=== PATIENT | male | born 1955 | race Hispanic/Latino ===

== ENCOUNTER → 2017-07-14 | Day surgery (SDC) | payer MEDICARE ==
[2016-05-14 05:44] VITALS: PULSE 85
[2016-05-16 16:51] VITALS: BMI 56.7
[~2017-07-14] MED LIST: Sodium Chloride 0.45% 1,000 ML IV SCH
[2017-07-14 10:38] LABS: BASO # 0.09 K/mm3 (0.0-2.0); BASO % 1.1 % (0.0-3.0); EOS # 0.5 (0.0-0.7); GRAN # 4.55 (1.4-6.5); GRAN % 55.7 % (50.0-68.0); HEMOGLOBIN 13.3 g/dL (14.0-18.0); LYMPH # 2.3 (1.2-3.4); LYMPH % 28.2 % (22.0-35.0); MEAN CELL VOLUME 97.4 fl (80.0-105.0); MEAN CORPUSCULAR HEMOGLOBIN 31.7 pg (25.0-35.0); MEAN CORPUSCULAR HGB CONC 32.6 g/dl (31.0-37.0); MEAN PLATELET VOLUME 9.9 fl (7.0-11.0); MONO # 0.7 (0.1-0.6); RBC 4.19 10^6/uL (3.5-6.1); RED CELL DISTRIBUTION WIDTH 13.9 % (11.5-14.5); WHITE BLOOD COUNT 8.2 10^3/ul (4.5-11.0)
[2017-07-14 10:44] VITALS: RESP 18
[2017-07-14 10:46] LABS: INR 1.92 (0.93-1.08); PROTHROMBIN TIME 22.4 SECONDS (9.4-12.5)
[2017-07-14 10:54] LABS: BLOOD UREA NITROGEN 14 mg/dL (7-21); CALCIUM 8.9 mg/dL (8.4-10.5); GFR AFRICAN-AMERICAN > 60; GFR NON-AFRICAN AMERICAN > 60
[2017-07-14 12:47] LABS: BODY FLUID TYPE PERITONEAL/ASCITES
[2017-07-14 13:11] VITALS: TEMP 97.7; O2SAT 96
[2017-07-14 13:11] LABS: BF GROSS APPEARANCE BLOODY (CLEAR)
[2017-07-14 13:12] LABS: BODY FLUID TOTAL COUNT 100 (0-0)
[2017-07-14 13:17] VITALS: BP 149/72; PULSE 72
--- NOTE | 2017-07-14 13:26 | US ---
PROCEDURE: Ultrasound guided paracentesis. HISTORY: Alcoholic cirrhosis. Ascites with abdominal pain and distension. PHYSICIAN(S): Reji Dill MD. TECHNIQUE: The relative risks and indications for the procedure were explained to the patient and informed written consent obtained. Sonography of the abdomen was performed in a supine position. This revealed a small to moderate amount of non-loculated ascites, greatest in the right mid abdomen. A puncture site was selected and the area was prepped and draped in the usual sterile fashion. 1% Xylocaine was used to anesthetize the skin and soft tissues. A 7 Lebanese paracentesis catheter was trocared into the right mid abdomenand 2400 cc of bloody, non clotting blood aspirated. The appropriate labs were sent. The patient was advised about close clinical follow-up along with his . Dr. Teo steele was contact IMPRESSION: Ultrasound-guided paracentesis in the right mid abdomen. 2400 cc of bloody fluid were aspirated
== END | disposition home or self-care (01) ==
LOC: OPSURG 09:52
PROVIDERS: ATTEND Radiology Vascular & Interventional Radiology
DX: K70.31 Alcoholic cirrhosis of liver with ascites (principal)
CPT/HCPCS: 36415; 49083; 80048; 82042; 85025; 85610; 85730; 87070; 87075; 87101; 88108; 89051; J7030

== ENCOUNTER 2017-08-08 13:10 | Inpatient (IN) | payer MEDICARE, OTHER ==
[2017-08-08 14:05] VITALS: BMI 51.6
--- NOTE | 2017-08-08 14:42 | ED PDOC ---
Arrival/HPI - General Chief Complaint: Shortness Of Breath Time Seen by Provider: 08/08/17 14:14 Historian: Patient, Spouse - History of Present Illness Narrative History of Present Illness (Text): you were treated in the ED today for hx of CHF, Afib on coumadin, ascites/lymph edema with prior abdomen fluid taps for large volume of fluid, with difficulty breathing and abdomen fullness but otherwise without any nausea/vomiting/ headache/dizziness/chest pain/numbness/tingling/loss of limb function/pain with urination. 08/08/17 17:12 Time/Duration: 1 week Symptom Onset: Gradual Symptom Course: Unchanged Quality: Aching Severity Level: 2 Activities at Onset: Rest Context: Sitting Past Medical History - Provider Review Nursing Documentation Reviewed: Yes - Travel History Have you recently traveled outside [place] w/in the past 3 mons?: No - Infectious Disease Hx of Infectious Diseases: None - Tetanus Immunization Tetanus Immunization: Unknown - Cardiac Hx Atrial Fibrillation: Yes Hx Hypertension: Yes - Pulmonary Hx Respiratory Disorders: No - Neurological Hx Paralysis: No - HEENT Hx HEENT Disorder: (WEARS RX GLASSES) - Renal Hx Renal Disorder: No - Endocrine/Metabolic Hx Endocrine Disorders: No - Hematological/Oncological Hx Blood Transfusions: No Other/Comment: lymphedema - Integumentary Hx Dermatological Disorder: Yes (BILATERAL LE LYMPEDEMA + 4 EDEMA) - Musculoskeletal/Rheumatological Hx Arthritis: Yes Hx Rheumatoid Arthritis: Yes - Gastrointestinal Hx Gastrointestinal Disorders: Yes (reflux/hemorrhoids/ulcer) Other/Comment: ascites - Genitourinary/Gynecological Hx Reproductive Disorders: No - Psychiatric Hx Psychophysiologic Disorder: No Hx Emotional Abuse: No Hx Physical Abuse: No Hx Substance Use: Yes - Surgical History Hx Gastric Bypass Surgery: Yes (1999) Other/Comment: Cardiac ablation for atrial fibrillation - Anesthesia Hx Anesthesia Reactions: No Hx Malignant Hyperthermia: No - Suicidal Assessment Feels Threatened In Home Enviroment: No Family/Social History - Physician Review Nursing Documentation Reviewed: Yes Family/Social History: No Known Family HX Smoking Status: Never Smoked Hx Alcohol Use: Yes (DAILY WINE.BOTTLE OF WINE DAILY. LAST DRANK 09-22-15) Hx Substance Use: Yes Hx Substance Use Treatment: No Allergies/Home Meds Allergies/Adverse Reactions: Allergies No Known Allergies Allergy (Verified 08/08/17 14:04) Home Medications: Home Meds Medication Instructions Recorded Confirmed Metoprolol Tartrate 150 mg PO DAILY 07/14/17 08/08/17 traMADol [Ultram] 50 mg PO Q6H PRN 07/14/17 08/08/17 Review of Systems - Review of Systems Constitutional: Normal Eyes: Normal ENT: Normal Respiratory: SOB Cardiovascular: Normal Gastrointestinal: Abdominal Pain Genitourinary Male: Normal Musculoskeletal: Normal Skin: Normal Neurological: Normal Endocrine: Normal Hemo/Lymphatic: Normal Psychiatric: Normal Physical Exam Vital Signs Reviewed: Yes Vital Signs Temp Pulse Resp BP Pulse Ox 08/08/17 14:46 18 95 08/08/17 14:05 97.6 F 69 18 134/81 99 Temperature: Afebrile Blood Pressure: Hypertensive Pulse: Regular Respiratory Rate: Normal Appearance: Positive for: Well-Appearing, Non-Toxic, Comfortable Pain Distress: None Mental Status: Positive for: Alert and Oriented X 3 - Systems Exam Head: Present: Atraumatic, Normocephalic Pupils: Present: PERRL Extroacular Muscles: Present: EOMI Conjunctiva: Present: Normal Ears: Present: Normal Mouth: Present: Moist Mucous Membranes Pharnyx: Present: Normal Nose (External): Present: Atraumatic Nose (Internal): Present: Normal Inspection Neck: Present: Normal Range of Motion Respiratory/Chest: Present: Clear to Auscultation, Good Air Exchange Cardiovascular: Present: Regular Rate and Rhythm Abdomen: Present: Other (obesity). No: Tenderness, Distention, Normal Bowel Sounds, Peritoneal Signs, Rebound, Guarding, McBurney's Point Tender, Rovsing's Sign Present, Hernias, Feeding Tubes, Ostomy Tubes, Mass/Organomegaly, Scars Back: Present: Normal Inspection Upper Extremity: Present: Normal Inspection Lower Extremity: Present: Edema Neurological: Present: GCS=15, CN II-XII Intact, Speech Normal, Motor Func Grossly Intact Skin: Present: Warm, Normal Color Psychiatric: Present: Alert, Oriented x 3, Normal Insight, Normal Concentration Medical Decision Making ED Course and Treatment: you were treated in the ED today for hx of CHF, Afib on coumadin, ascites/lymph edema with prior abdomen fluid taps for large volume of fluid, with difficulty breathing and abdomen fullness but otherwise without any nausea/vomiting/ headache/dizziness/chest pain/numbness/tingling/loss of limb function/pain with urination. You were otherwise breathing easily, pink moist lips, smiling and talking with your , good strength/sensation, alert/oriented, walking easily , clear lungs, no abdomen tenderness, no fever temp 97.6, stable heart rate 69, stable breathing rate 18, excellent oxygen level 99% room air, elevated blood pressure 134/81 which we recommend repeat in 2-3 days primary care office to determine further treatment, you have blood tests no infection count 6, stable blood level hemoglobin 13/platelets 181, stable chemistry, Liver bilirubin mildly elevated 2.5, heart blood test negative less than 0.01, bnp 1110, urine test unclear sign of infection with trace leukocytes, INR 2.64, lipase normal 162, radiology chest xray with no active disease, ECG afib, observation done in the ED without improvement. ct a/p 07/27/17 with moderate ascites and anasarca with extensive subcutaneous edema. Report Date : 08/08/2017 15:16:38 Procedure: Chest xray Dictator : Hilario Dill MD IMPRESSION: No active disease. d/w hospitalist Dr. Land who stated can admit to telemetry for fluid overload/ ascites evaluation for possible paracentesis. 08/08/17 17:15 Reassessment Condition: Re-examined, Unchanged - Lab Interpretations Lab Results: 08/08/17 14:30 08/08/17 14:30 Lab Results 08/08/17 14:30: Sodium 137, Potassium 5.0, Chloride 100, Carbon Dioxide 27, Anion Gap 16, BUN 17, Creatinine 0.7 L, Est GFR ( Amer) > 60, Est GFR ( Non-Af Amer) > 60, Random Glucose 105, Calcium 9.2, Magnesium 1.9, Total Bilirubin 2.5 H, AST 30, ALT 28, Alkaline Phosphatase 92, Lactate Dehydrogenase 457, Total Creatine Kinase 80, Troponin I < 0.01, NT-Pro-B Natriuret Pep 1110 H , Total Protein 7.2, Albumin 4.2, Globulin 3.1, Albumin/Globulin Ratio 1.4, Lipase 162 08/08/17 14:30: PT 30.7 H, INR 2.64 H, APTT 38.4 H 08/08/17 14:30: WBC 6.5 D, RBC 4.12, Hgb 13.0 L, Hct 39.7 L, MCV 96.4, MCH 31.6 , MCHC 32.7, RDW 13.8, Plt Count 181, MPV 9.8, Gran % 57.2, Lymph % (Auto) 22.8 , [place] % (Auto) 13.0 H, Eos % (Auto) 5.5 H, Baso % (Auto) 1.5, Gran # 3.73, Lymph # (Auto) 1.5, [place] # (Auto) 0.9 H, Eos # (Auto) 0.4, Baso # (Auto) 0.10 08/08/17 14:20: Urine Color Yellow, Urine Appearance Clear, Urine pH 6.0, Ur Specific [place] 1.015, Urine Protein Negative, Urine Glucose (UA) Negative, Urine Ketones Negative, Urine Blood Trace-intact H, Urine Nitrate Negative, Urine Bilirubin Negative, Urine Urobilinogen 1.0 H, Ur Leukocyte Esterase Small H, Urine RBC 1 - 3, Urine WBC 2 - 5, Ur Epithelial Cells None, Urine Bacteria Few I have reviewed the lab results: Yes - RAD Interpretation Radiology Orders: 08/08/17 14:38 CHEST PORTABLE [RAD] Stat [employer] Instructor: Radiologist - EKG Interpretation Interpreted by ED Physician: Yes (afib) Type: 12 lead EKG Comparison: Similar to previous EKG (05/14/16) - Medication Orders Current Medication Orders: Discontinued Medications Morphine Sulfate (Morphine) 4 mg IVP STAT STA Stop: 08/08/17 15:59 Last Admin: 08/08/17 16:15 Dose: 4 mg MAR Pain Assessment Document 08/08/17 16:15 MS (Rec: 08/08/17 16:17 MS [id number]) Pain Reassessment Is this a pain reassessment? No Sleep Is patient sleeping during reassessment? No Presence of Pain Presence of Pain Yes Pain Scale Used Pain Scale Used Numeric Location Upper or Lower Upper Pain Location Body Site Abdomen Description Description Constant Intensity of Pain at present 9 Pain Behavior Moaning Guarding Grasping Site IVP Administration Document 08/08/17 16:15 MS (Rec: 08/08/17 16:17 MS [id number]) Charges for Administration # of IVP Administrations 1 Disposition/Present on Arrival - Present on Arrival Any Indicators Present on Arrival: No History of DVT/PE: No History of Uncontrolled Diabetes: No Urinary Catheter: No History of Decub. Ulcer: No History Surgical Site Infection Following: None - Disposition Have Diagnosis and Disposition been Completed?: Yes Diagnosis: Congestive heart failure (CHF), Ascites Disposition: HOSPITALIZED Disposition Time: 17:16 Patient Plan: Admission, Telemetry Condition: STABLE Discharge Instructions (ExitCare): Heart Failure (ED) Referrals: Rob Carter MD [Primary Care Provider] - Follow up with primary Forms: [facility] ([place])
[2017-08-08 14:57] LABS: BASO # 0.1 K/mm3 (0.0-2.0); BASO % 1.5 % (0.0-3.0); EOS # 0.4 (0.0-0.7); EOS % 5.5 % (1.5-5.0); GRAN # 3.73 (1.4-6.5); GRAN % 57.2 % (50.0-68.0); LYMPH # 1.5 (1.2-3.4); LYMPH % 22.8 % (22.0-35.0); MEAN CELL VOLUME 96.4 fl (80.0-105.0); MEAN CORPUSCULAR HEMOGLOBIN 31.6 pg (25.0-35.0); MEAN CORPUSCULAR HGB CONC 32.7 g/dl (31.0-37.0); MEAN PLATELET VOLUME 9.8 fl (7.0-11.0); MONO # 0.9 (0.1-0.6); RBC 4.12 10^6/uL (3.5-6.1); RED CELL DISTRIBUTION WIDTH 13.8 % (11.5-14.5); WHITE BLOOD COUNT 6.5 10^3/ul (4.5-11.0)
[2017-08-08 15:00] LABS: ALB/GLOB RATIO 1.4 (1.1-1.8); ALBUMIN 4.2 g/dL (3.0-4.8); ALT/SGPT 28 U/L (7-56); AST/SGOT 30 U/L (17-59); BLOOD UREA NITROGEN 17 mg/dL (7-21); CALCIUM 9.2 mg/dL (8.4-10.5); GFR AFRICAN-AMERICAN > 60; GFR NON-AFRICAN AMERICAN > 60; LIPASE 162 U/L (23-300)
[2017-08-08 15:09] LABS: B-TYPE NATRIURETIC PEPTIDE 1110 pg/mL (0-450); TROPONIN I < 0.01 ng/mL
[2017-08-08 15:13] LABS: INR 2.64 (0.93-1.08); PARTIAL THROMBOPLASTIN TIME 38.4 Seconds (25.1-36.5); PROTHROMBIN TIME 30.7 SECONDS (9.4-12.5)
--- NOTE | 2017-08-08 15:17 | RAD ---
HISTORY: 62yoM, with sob COMPARISON: 05/14/2016 FINDINGS: LUNGS: No active pulmonary disease. PLEURA: No significant pleural effusion identified, no pneumothorax apparent. CARDIOVASCULAR: Mild cardiomegaly OSSEOUS STRUCTURES: No significant abnormalities. VISUALIZED UPPER ABDOMEN: Normal. OTHER FINDINGS: None. IMPRESSION: No active disease.
[2017-08-08] MEDS ORDERED: Morphine 4 mg/ml ISec IVP STA (15:58)
[2017-08-08 16:20] LABS: URINE BILIRUBIN NEGATIVE (NEGATIVE); URINE BLOOD TRACE-INTACT (NEGATIVE); URINE GLUCOSE (UA) NEGATIVE (NEGATIVE); URINE LEUKOCYTE ESTERASE SMALL Leu/uL (NEGATIVE); URINE PROTEIN NEGATIVE mg/dL (<30 mg/dL)
[2017-08-08 16:21] LABS: URINE APPEARANCE CLEAR (CLEAR); URINE COLOR YELLOW (YELLOW)
[2017-08-08 16:27] LABS: URINE BACTERIA FEW (NEG)
--- NOTE | 2017-08-08 17:12 | CP.PCM.HP ---
<Dio Modi - Last Filed: 08/08/17 18:18> History of Present Illness - History of Present Illness History of Present Illness: 62 year old male with past medical history of ascites, CHF, atrial fibrillation , morbid obesity, lymphadema, GERD, Pulmonary HTN presents with shortness of breath. Patient states shortness of breath began yesterday. When he tries to ambulate a small distance he feels like he cant breath and he has also noted his belly has been getting mackenzie and larger. Patient states that he has gained about 50 lbs over the past 6 months and that his abdomen has been tapped twice, last in June for which 2.5 L was removed. He saw his park naturalist, Dr. Ziegler last week for which he was given a prescription for a water pill but he has yest to have it filled. Patient denies any chest pain, fever, cough, chills, sick contacts or any other complaints at this time. Cardio: Dr. Ziegler PMD: Dr. Brown PMH: CHF (distolic dysfunction), atrial fibrillation, morbid obesity, lymphadema , GERD, Pulmonary HTN Med: Coumadin 2.5 mg PO daily, Metoprolol 100 mg PO daily, Digoxin 0.25 PO daily , Tramadol 50 mg PO TID PRN, folic acid Allergy: NKDA PSH: IVC filter placement (2010), Cardiac Ablation (1999), Gastric bypass (1999) Hosp: recent hospitalization in April for similar symptoms and paracentesis by Dr. Dill in June FH: Mother - CVA, DM; Father - CVA, HTN Social: bottle of wine over 3-4 days, smoked a pack a day, denies illicit drug use Present on Admission - Present on Admission Any Indicators Present on Admission: No Review of Systems - Constitutional Constitutional: absent: Chills, Fever, Night Sweats - EENT Eyes: absent: Blurred Vision, Change in Vision - Cardiovascular Cardiovascular: Dyspnea, Orthopnea. absent: Chest Pain, Palpitations - Respiratory Respiratory: Dyspnea. absent: Cough, Wheezing, Snoring - Gastrointestinal Gastrointestinal: Abdominal Pain. absent: Coffee Ground Emesis, Melena, Nausea , Vomiting - Genitourinary Genitourinary: absent: Change in Urinary Stream, Difficulty Urinating - Musculoskeletal Musculoskeletal: absent: Numbness, Tingling - Neurological Neurological: absent: Dizziness, Tingling Past Patient History - Infectious Disease Hx of Infectious Diseases: None - Tetanus Immunizations Tetanus Immunization: Unknown - Past Social History Smoking Status: Never Smoked - CARDIAC Hx Atrial Fibrillation: Yes Hx Hypertension: Yes - PULMONARY Hx Respiratory Disorders: No - NEUROLOGICAL Hx Paralysis: No - HEENT Hx HEENT Problems: (WEARS RX GLASSES) - RENAL Hx Chronic Kidney Disease: No - ENDOCRINE/METABOLIC Hx Endocrine Disorders: No - HEMATOLOGICAL/ONCOLOGICAL Hx Blood Transfusions: No Other/Comment: lymphedema - INTEGUMENTARY Hx Dermatological Problems: Yes (BILATERAL LE LYMPEDEMA + 4 EDEMA) - MUSCULOSKELETAL/RHEUMATOLOGICAL Hx Arthritis: Yes Hx Rheumatoid Arthritis: Yes - GASTROINTESTINAL Hx Gastrointestinal Disorders: Yes (reflux/hemorrhoids/ulcer) Other/Comment: ascites - GENITOURINARY/GYNECOLOGICAL Hx Reproductive Disorders: No - PSYCHIATRIC Hx Psychophysiologic Disorder: No Hx Emotional Abuse: No Hx Physical Abuse: No Hx Substance Use: Yes - SURGICAL HISTORY Hx Gastric Bypass Surgery: Yes (1999) Other/Comment: Cardiac ablation for atrial fibrillation - ANESTHESIA Hx Anesthesia Reactions: No Hx Malignant Hyperthermia: No Meds Allergies/Adverse Reactions: Allergies Allergy/AdvReac Type Severity Reaction Status Date / Time No Known Allergies Allergy Verified 08/08/17 14:04 Physical Exam - Constitutional Appears: Non-toxic, No Acute Distress - Head Exam Head Exam: ATRAUMATIC, NORMAL INSPECTION, NORMOCEPHALIC - Eye Exam Eye Exam: EOMI, Normal appearance - ENT Exam ENT Exam: Mucous Membranes Moist - Respiratory Exam Respiratory Exam: Rales, NORMAL BREATHING PATTERN - GI/Abdominal Exam GI & Abdominal Exam: Distended, Tenderness Results - Vital Signs Recent Vital Signs: Last Vital Signs Temp 97.6 F 08/08/17 14:05 Pulse 69 08/08/17 14:05 Resp 18 08/08/17 14:46 BP 134/81 08/08/17 14:05 Pulse Ox 95 08/08/17 14:46 - Labs Result Diagrams: 08/08/17 14:30 08/08/17 14:30 Labs: Laboratory Results - last 24 hr 08/08/17 08/08/17 08/08/17 14:20 14:30 14:30 WBC 6.5 D RBC 4.12 Hgb 13.0 L Hct 39.7 L MCV 96.4 MCH 31.6 MCHC 32.7 RDW 13.8 Plt Count 181 MPV 9.8 Gran % 57.2 Lymph % (Auto) 22.8 [place] % (Auto) 13.0 H Eos % (Auto) 5.5 H Baso % (Auto) 1.5 Gran # 3.73 Lymph # (Auto) 1.5 [place] # (Auto) 0.9 H Eos # (Auto) 0.4 Baso # (Auto) 0.10 PT 30.7 H INR 2.64 H APTT 38.4 H Sodium Potassium Chloride Carbon Dioxide Anion Gap BUN Creatinine Est GFR ( Amer) Est GFR (Non-Af Amer) Random Glucose Calcium Magnesium Total Bilirubin AST ALT Alkaline Phosphatase Lactate Dehydrogenase Total Creatine Kinase Troponin I NT-Pro-B Natriuret Pep Total Protein Albumin Globulin Albumin/Globulin Ratio Lipase Urine Color Yellow Urine Appearance Clear Urine pH 6.0 Ur Specific [place] 1.015 Urine Protein Negative Urine Glucose (UA) Negative Urine Ketones Negative Urine Blood Trace-intact H Urine Nitrate Negative Urine Bilirubin Negative Urine Urobilinogen 1.0 H Ur Leukocyte Esterase Small H Urine RBC 1 - 3 Urine WBC 2 - 5 Ur Epithelial Cells None Urine Bacteria Few 08/08/17 14:30 WBC RBC Hgb Hct MCV MCH MCHC RDW Plt Count MPV Gran % Lymph % (Auto) [place] % (Auto) Eos % (Auto) Baso % (Auto) Gran # Lymph # (Auto) [place] # (Auto) Eos # (Auto) Baso # (Auto) PT INR APTT Sodium 137 Potassium 5.0 Chloride 100 Carbon Dioxide 27 Anion Gap 16 BUN 17 Creatinine 0.7 L Est GFR ( Amer) > 60 Est GFR (Non-Af Amer) > 60 Random Glucose 105 Calcium 9.2 Magnesium 1.9 Total Bilirubin 2.5 H AST 30 ALT 28 Alkaline Phosphatase 92 Lactate Dehydrogenase 457 Total Creatine Kinase 80 Troponin I < 0.01 NT-Pro-B Natriuret Pep 1110 H Total Protein 7.2 Albumin 4.2 Globulin 3.1 Albumin/Globulin Ratio 1.4 Lipase 162 Urine Color Urine Appearance Urine pH Ur Specific [place] Urine Protein Urine Glucose (UA) Urine Ketones Urine Blood Urine Nitrate Urine Bilirubin Urine Urobilinogen Ur Leukocyte Esterase Urine RBC Urine WBC Ur Epithelial Cells Urine Bacteria Assessment & Plan - Assessment and Plan (Free Text) Assessment: 62 year old male with past medical history of ascites, CHF, atrial fibrillation , morbid obesity, lymphadema, GERD, Pulmonary HTN presents with shortness of breath for the past day, along with increased abdominal distension. Plan: Shortness of Breath Likely secondary to CHF exacerbation -chest xray showing vascular congestion -EKG showing Afib -Strict I's & O's -Lasix 40 mg IVP BID -1500ml fluid restriction daily -Digoxin 0.25 mg PO daily -Digoxin level pending -BNP: 1110 -Metoprolol 100 mg PO daily -Cardiology consult, Dr. Stearns, follow recs Ascites-likely secondary to heart failure -IR consulted, Reji Dill, follow recs -possible paracentesis -Lasix IVP 40 BID -hold coumadin -repeat INR and coags in AM Atrial fibrillation-chronic -Holding Coumadin 2.5 mg -Digoxin 0.25 mg PO daily -Metoprolol 100 mg PO daily -Cardiology consult, Dr. Ziegler, follow recs HTN-chronic -Metoprolol 100 mg PO daily Morbid Obesity -semi truck driver consult -diet counseling GERD -protonix Prophylaxis DVT ppx: currently on hold for elevated INR GI ppx: Protonix 40 mg PO daily <Rodriguez Land - Last Filed: 08/09/17 16:40> Results - Vital Signs Recent Vital Signs: Last Vital Signs Temp 98.1 F 08/09/17 12:00 Pulse 64 08/09/17 14:00 Resp 20 08/09/17 12:00 BP 123/67 08/09/17 12:00 Pulse Ox 93 L 08/09/17 05:55 - Labs Result Diagrams: 08/09/17 06:00 08/09/17 06:00 Labs: Laboratory Results - last 24 hr 08/09/17 12:10 Urine Color Yellow Urine Appearance Clear Urine pH 5.5 Ur Specific [place] <= 1.005 Urine Protein Negative Urine Glucose (UA) Negative Urine Ketones Negative Urine Blood Negative Urine Nitrate Negative Urine Bilirubin Negative Urine Urobilinogen 0.2 Ur Leukocyte Esterase Small H Urine RBC 0 - 2 Urine WBC 5 - 10 Ur Epithelial Cells None Urine Bacteria Few Attending/Attestation - Attestation I have personally seen and examined this patient.: Yes I have fully participated in the care of the patient.: Yes I have reviewed all pertinent clinical information: Yes Notes (Text): 08/09/17 16:36 Medical record note made by the resident after discussion with my direction and input after the patient was personally seen and examined by me. I have reviewed the chart and agree that the record accurately reflects by personal performance of the history, physical exam, data review, and medical decision-making, in the course for the patient. I have also personally directed the plan of care 62 year old male with past medical history of Morbid Obesity,HTN, diastolic CHF , atrial fibrillation on anticoagulation with warfarin, , lymphadema, GERD, and Pulmonary HTN is admitted with dyspnea on exertion and worsening abdominal swelling.Patient dyspnea is due to fluid overload, will start patient on IV lasix, will get 2D Echo, we will hold warfarin and will get IR evaluation for Paracentesis.We will also get cardiology evaluation. Management plan was discussed in detail with patient. Education was provided.
--- NOTE | 2017-08-08 20:35 | CARD ---
APPROVED REPORT EKG Measurement Heart [id number] <Conclusion> Atrial fibrillation Abnormal ECG
[2017-08-09] MEDS: Pantoprazole 40 mg EC Tab PO SCH (05:17)
[2017-08-09 07:33] LABS: BASO # 0.04 K/mm3 (0.0-2.0); BASO % 0.7 % (0.0-3.0); EOS # 0.3 (0.0-0.7); EOS % 5.4 % (1.5-5.0); GRAN # 2.93 (1.4-6.5); GRAN % 54.4 % (50.0-68.0); HEMOGLOBIN 11.6 g/dL (14.0-18.0); LYMPH # 1.4 (1.2-3.4); LYMPH % 25.4 % (22.0-35.0); MEAN CELL VOLUME 95.7 fl (80.0-105.0); MEAN CORPUSCULAR HEMOGLOBIN 30.9 pg (25.0-35.0); MEAN CORPUSCULAR HGB CONC 32.2 g/dl (31.0-37.0); MEAN PLATELET VOLUME 10.1 fl (7.0-11.0); MONO # 0.8 (0.1-0.6); MONO % 14.1 % (1.0-6.0); RBC 3.76 10^6/uL (3.5-6.1); RED CELL DISTRIBUTION WIDTH 13.8 % (11.5-14.5); WHITE BLOOD COUNT 5.4 10^3/ul (4.5-11.0)
[2017-08-09 07:47] LABS: ALB/GLOB RATIO 1.4 (1.1-1.8); ALBUMIN 3.9 g/dL (3.0-4.8); ALT/SGPT 24 U/L (7-56); AST/SGOT 50 U/L (17-59); BLOOD UREA NITROGEN 16 mg/dL (7-21); CALCIUM 9.2 mg/dL (8.4-10.5); GFR AFRICAN-AMERICAN > 60; GFR NON-AFRICAN AMERICAN > 60
[2017-08-09 08:29] LABS: INR 3.01 (0.93-1.08); PROTHROMBIN TIME 35.4 SECONDS (9.4-12.5)
--- NOTE | 2017-08-09 09:06 | CP.PCM.PN ---
<Nadiya Ansari - Last Filed: 08/09/17 09:14> Subjective - Date & Time of Evaluation Date of Evaluation: 08/09/17 Time of Evaluation: 09:03 - Subjective Subjective: Hospitalist Service Patient seen and examined at [facility]. Patient reports orthopnea. Patient denies chest pain. Patient ask what time his paracentesis will be. Chart review indicates no adverse events overnight. Objective - Vital Signs/Intake and Output Vital Signs (last 24 hours): Temp Pulse Resp BP Pulse Ox 97.5 F L 77 20 136/78 93 L 08/09/17 05:55 08/09/17 08:28 08/09/17 05:55 08/09/17 08:28 08/09/17 05:55 Intake and Output: 08/09/17 08/09/17 06:59 18:59 Intake Total 240 Output Total 2450 Balance -2210 - Medications Medications: Current Medications Digoxin (Lanoxin) 0.25 mg PO 1400 ERNESTINA Furosemide (Lasix) 40 mg IVP Q12 [facility] Last Admin: 08/08/17 21:58 Dose: Not Given Metoprolol Tartrate (Lopressor) 100 mg PO BRK [facility] Last Admin: 08/09/17 08:41 Dose: Not Given Pantoprazole Sodium (Protonix Ec Tab) 40 mg PO 0600 [facility] Last Admin: 08/09/17 05:17 Dose: 40 mg Tramadol HCl (Ultram) 50 mg PO Q6H PRN PRN Reason: Pain, moderate (4-7) - Labs Labs: 08/09/17 06:00 08/09/17 06:00 PT 35.4 SECONDS (9.4-12.5) H 08/09/17 06:30 INR 3.01 (0.93-1.08) H 08/09/17 06:30 APTT 38.4 Seconds (25.1-36.5) H 08/08/17 14:30 - Constitutional Appears: Well, Non-toxic - Head Exam Head Exam: ATRAUMATIC - Eye Exam Eye Exam: EOMI, Normal appearance - Respiratory Exam Respiratory Exam: Rales, NORMAL BREATHING PATTERN - Cardiovascular Exam Cardiovascular Exam: +S1, +S2 - GI/Abdominal Exam GI & Abdominal Exam: Distended. absent: Guarding - Extremities Exam Extremities Exam: Pedal Edema - Neurological Exam Neurological Exam: Alert, Awake, Oriented x3 - Psychiatric Exam Psychiatric exam: Normal Affect, Normal Mood Assessment and Plan - Assessment and Plan (Free Text) Assessment: 62 year old male with past medical history of ascites, CHF, atrial fibrillation , morbid obesity, lymphadema, GERD, Pulmonary HTN presents with shortness of breath for the past day, along with increased abdominal distension. Plan: Shortness of Breath Likely secondary to CHF exacerbation -chest xray showing vascular congestion -EKG showing Afib -Strict I's & O's -Lasix 40 mg IVP BID -1500ml fluid restriction daily -Digoxin 0.25 mg PO daily -Digoxin level wnl -BNP: 1110 -Metoprolol 100 mg PO daily -Cardiology consult, Dr. Stearns, follow recs Ascites-likely secondary to heart failure -IR consulted, Reji Dill, follow recs -possible paracentesis -Lasix IVP 40 BID -hold coumadin -repeat INR is 3.01 Atrial fibrillation-chronic -Holding Coumadin 2.5 mg -Digoxin 0.25 mg PO daily -Metoprolol 100 mg PO daily -Cardiology consult, Dr. Ziegler, follow recs HTN-chronic -Metoprolol 100 mg PO daily Morbid Obesity -delivery room supervisor consult -diet counseling GERD -protonix Prophylaxis DVT ppx: currently on hold for elevated INR GI ppx: Protonix 40 mg PO daily Case reviewed and discussed with Dr. Land <Rodriguez Land - Last Filed: 08/09/17 16:41> Objective - Vital Signs/Intake and Output Vital Signs (last 24 hours): Temp Pulse Resp BP Pulse Ox 98.1 F 64 20 123/67 93 L 08/09/17 12:00 08/09/17 14:00 08/09/17 12:00 08/09/17 12:00 08/09/17 05:55 Intake and Output: 08/09/17 08/09/17 06:59 18:59 Intake Total 660 Output Total 600 Balance 60 - Medications Medications: Current Medications Digoxin (Lanoxin) 0.25 mg PO 1400 [facility] Last Admin: 08/09/17 13:20 Dose: Not Given Furosemide (Lasix) 40 mg IVP Q12 [facility] Last Admin: 08/09/17 09:11 Dose: 40 mg Ceftriaxone Sodium (Rocephin 1 Gram Ivpb) 1 gm in 100 mls @ 100 mls/hr IVPB DAILY ERNESTINA PRN Reason: Protocol Stop: 08/12/17 15:01 Last Admin: 08/09/17 15:54 Dose: 100 mls/hr Metoprolol Tartrate (Lopressor) 100 mg PO BRK [facility] Last Admin: 08/09/17 08:41 Dose: Not Given Pantoprazole Sodium (Protonix Ec Tab) 40 mg PO 0600 [facility] Last Admin: 08/09/17 05:17 Dose: 40 mg Spironolactone (Aldactone) 25 mg PO BID [facility] Last Admin: 08/09/17 12:05 Dose: 25 mg Tramadol HCl (Ultram) 50 mg PO Q6H PRN PRN Reason: Pain, moderate (4-7) Last Admin: 08/09/17 09:12 Dose: 50 mg Zolpidem Tartrate (Ambien) 10 mg PO HS PRN; Protocol PRN Reason: Insomnia - Labs Labs: PT 35.4 SECONDS (9.4-12.5) H 08/09/17 06:30 INR 3.01 (0.93-1.08) H 08/09/17 06:30 APTT 38.4 Seconds (25.1-36.5) H 08/08/17 14:30 Attending/Attestation - Attestation I have personally seen and examined this patient.: Yes I have fully participated in the care of the patient.: Yes I have reviewed all pertinent clinical information, including history, physical exam and plan: Yes Notes (Text): 08/09/17 16:41 Medical record note made by the resident after discussion with my direction and input after the patient was personally seen and examined by me. I have reviewed the chart and agree that the record accurately reflects by personal performance of the history, physical exam, data review, and medical decision-making, in the course for the patient. I have also personally directed the plan of care
[2017-08-09 13:08] LABS: PH,URINE 5.5 (4.7-8.0); URINE BILIRUBIN NEGATIVE (NEGATIVE); URINE BLOOD NEGATIVE (NEGATIVE); URINE GLUCOSE (UA) NEGATIVE (NEGATIVE); URINE LEUKOCYTE ESTERASE SMALL Leu/uL (NEGATIVE); URINE PROTEIN NEGATIVE mg/dL (<30 mg/dL); URINE UROBILINOGEN 0.2 E.U./dL (<1 E.U./dL)
[2017-08-09 13:14] LABS: URINE APPEARANCE CLEAR (CLEAR); URINE COLOR YELLOW (YELLOW)
[2017-08-09 13:20] LABS: URINE BACTERIA FEW (NEG); URINE RBC 0 - 2 /hpf (0-2)
[2017-08-09] MEDS: Digoxin 250 mcg (0.25 mg) Tab PO SCH (13:20)
[2017-08-09 13:21] VITALS: PULSE 57
--- NOTE | 2017-08-09 15:36 | CON ---
DATE: 08/09/2017 REQUESTING PHYSICIAN: Dr. Baeza. REASON FOR CONSULTATION: Dyspnea. HISTORY: This is a 62-year-old man well known to me with a history of chronic atrial fibrillation, morbid obesity, chronic lymphedema and alcoholic liver disease, who was admitted with worsening dyspnea. He has undergone paracentesis in the past for significant ascites, also over the past several months he has had significant weight gain of over 50 pounds. He was recently seen as an outpatient and advised follow up with Dr. Reji Dill for possible paracentesis. He was also given a prescription for spironolactone which he did not fill or obtain. He presented and was admitted. He denies any chest pain. PAST MEDICAL HISTORY: Notable for the problems mentioned above. He has chronic lymphedema, gastroesophageal reflux disease, morbid obesity and pulmonary hypertension. He has had prior cardiac ablation performed as well as a gastric bypass surgery and IVC filter placement. MEDICATIONS: At home include warfarin, metoprolol 100 mg daily, digoxin 0.25 mg daily, tramadol and folic acid. ALLERGIES: NONE. SOCIAL HISTORY: He drinks intermittently, but states he has cut back on it significantly. He is also a former smoker. FAMILY HISTORY: His father from cerebrovascular accident. Mother from complications of diabetes and stroke as well. REVIEW OF SYSTEMS: A 10-point review of systems is notable mainly for the problems as above. PHYSICAL EXAMINATION: GENERAL: He is an obese, middle-aged man. VITAL SIGNS: His blood pressure is 136/78 with the pulse of 76, in atrial fibrillation, respirations 14. He is afebrile. HEENT: Normocephalic, atraumatic. NECK: Supple. No JVD noted. CHEST: Diminished breath sounds noted at bases. HEART: PMI displaced laterally with an irregularly irregular rhythm and soft systolic murmur present at the lower left sternal border. ABDOMEN: Soft, markedly obese. There is unclear if ascites is present. Bowel sounds are present. EXTREMITIES: Marked lymphedema in both lower extremities. SKIN: Significant bilateral lower extremity cellulitic changes at present. DIAGNOSTIC DATA: White count is 5.4, hemoglobin and hematocrit 11.6 and 36 with platelet count of 172,000. INR 3.01, potassium 4.4, BUN and creatinine 16 and 0.7. BNP is 1110. Troponin is negative. Albumin is 3.9. Digoxin level is 1. IMPRESSION: 1. Increasing dyspnea likely due to volume overload and chronic liver disease. 2. Possible ascites, needs evaluation and possible paracentesis. 3. Chronic atrial fibrillation, controlled rate. 4. History of alcohol abuse. 5. Rest of problems as noted. RECOMMENDATIONS: Oral spironolactone will be added to his regimen at this time. IV Lasix should be continued for now. Abdomen ultrasound is advised. If significant fluid accumulation is present, paracentesis should be considered. The need for alcohol abstinence was discussed with him. We will continue to follow and make further recommendation as appropriate. Osvaldo Myrick MD
[2017-08-09] MEDS: cefTRIAXone 1 gm 1 GM/100 ML BAG IVPB SCH (15:54)
--- NOTE | 2017-08-09 17:15 | CP.PCM.PCO ---
Physician Communication Note - Physician Communication Note Physician Communication Note: Nurse called and asked to cancel order for abd us given patient taken for Hospital Course - Lab Results Lab Results: Most Recent Lab Values WBC 5.4 10^3/ul (4.5-11.0) 08/09/17 06:00 RBC 3.76 10^6/uL (3.5-6.1) 08/09/17 06:00 Hgb 11.6 g/dL (14.0-18.0) L 08/09/17 06:00 Hct 36.0 % (42.0-52.0) L 08/09/17 06:00 MCV 95.7 fl (80.0-105.0) 08/09/17 06:00 MCH 30.9 pg (25.0-35.0) 08/09/17 06:00 MCHC 32.2 g/dl (31.0-37.0) 08/09/17 06:00 RDW 13.8 % (11.5-14.5) 08/09/17 06:00 Plt Count 172 10^3/uL (120.0-450.0) 08/09/17 06:00 MPV 10.1 fl (7.0-11.0) 08/09/17 06:00 Gran % 54.4 % (50.0-68.0) 08/09/17 06:00 Lymph % (Auto) 25.4 % (22.0-35.0) 08/09/17 06:00 [place] % (Auto) 14.1 % (1.0-6.0) H 08/09/17 06:00 Eos % (Auto) 5.4 % (1.5-5.0) H 08/09/17 06:00 Baso % (Auto) 0.7 % (0.0-3.0) 08/09/17 06:00 Gran # 2.93 (1.4-6.5) 08/09/17 06:00 Lymph # (Auto) 1.4 (1.2-3.4) 08/09/17 06:00 [place] # (Auto) 0.8 (0.1-0.6) H 08/09/17 06:00 Eos # (Auto) 0.3 (0.0-0.7) 08/09/17 06:00 Baso # (Auto) 0.04 K/mm3 (0.0-2.0) 08/09/17 06:00 PT 35.4 SECONDS (9.4-12.5) H 08/09/17 06:30 INR 3.01 (0.93-1.08) H 08/09/17 06:30 APTT 38.4 Seconds (25.1-36.5) H 08/08/17 14:30 Sodium 139 mmol/L (132-148) 08/09/17 06:00 Potassium 4.4 mmol/L (3.6-5.0) 08/09/17 06:00 Chloride 101 mmol/L (98-107) 08/09/17 06:00 Carbon Dioxide 25 mmol/L (21-33) 08/09/17 06:00 Anion Gap 17 (10-20) 08/09/17 06:00 BUN 16 mg/dL (7-21) 08/09/17 06:00 Creatinine 0.7 mg/dl (0.8-1.5) L 08/09/17 06:00 Est GFR ( Amer) > 60 08/09/17 06:00 Est GFR (Non-Af Amer) > 60 08/09/17 06:00 Random Glucose 89 mg/dL (70-110) 08/09/17 06:00 Calcium 9.2 mg/dL (8.4-10.5) 08/09/17 06:00 Magnesium 1.9 mg/dL (1.7-2.2) 08/08/17 14:30 Total Bilirubin 2.8 mg/dL (0.2-1.3) H 08/09/17 06:00 AST 50 U/L (17-59) 08/09/17 06:00 ALT 24 U/L (7-56) 08/09/17 06:00 Alkaline Phosphatase 81 U/L (38-126) 08/09/17 06:00 Lactate Dehydrogenase 457 U/L (333-699) 08/08/17 14:30 Total Creatine Kinase 80 U/L (35-230) 08/08/17 14:30 Troponin I < 0.01 ng/mL 08/08/17 14:30 NT-Pro-B Natriuret Pep 1110 pg/mL (0-450) H 08/08/17 14:30 Total Protein 6.7 g/dL (5.8-8.3) 08/09/17 06:00 Albumin 3.9 g/dL (3.0-4.8) 08/09/17 06:00 Globulin 2.9 gm/dL 08/09/17 06:00 Albumin/Globulin Ratio 1.4 (1.1-1.8) 08/09/17 06:00 Lipase 162 U/L (23-300) 08/08/17 14:30 Urine Color Yellow (YELLOW) 08/09/17 12:10 Urine Appearance Clear (CLEAR) 08/09/17 12:10 Urine pH 5.5 (4.7-8.0) 08/09/17 12:10 Ur Specific Turrell <= 1.005 (1.005-1.035) 08/09/17 12:10 Urine Protein Negative mg/dL (<30 mg/dL) 08/09/17 12:10 Urine Glucose (UA) Negative mg/dL (NEGATIVE) 08/09/17 12:10 Urine Ketones Negative mg/dL (NEGATIVE) 08/09/17 12:10 Urine Blood Negative (NEGATIVE) 08/09/17 12:10 Urine Nitrate Negative (NEGATIVE) 08/09/17 12:10 Urine Bilirubin Negative (NEGATIVE) 08/09/17 12:10 Urine Urobilinogen 0.2 E.U./dL (<1 E.U./dL) 08/09/17 12:10 Ur Leukocyte Esterase Small Brian/uL (NEGATIVE) H 08/09/17 12:10 Urine RBC 0 - 2 /hpf (0-2) 08/09/17 12:10 Urine WBC 5 - 10 /hpf (0-6) 08/09/17 12:10 Ur Epithelial Cells None /hpf (0-5) 08/09/17 12:10 Urine Bacteria Few (NEG) 08/09/17 12:10 Digoxin 1.0 ng/mL (0.8-2.0) 08/08/17 14:30 - Hospital Course Hospital Course: ultrasounded guided paracentesis by Dr. Reji Dill - Date & Time of H&P Date of H&P: 08/09/17 Time of H&P: 17:14
--- NOTE | 2017-08-09 19:51 | US ---
PROCEDURE: Ultrasound guided paracentesis. HISTORY: Recurrent ascites with abdominal pain and shortness of breath. Needs paracentesis. PHYSICIAN(S): Reji Dill MD. TECHNIQUE: The relative risks and indications for the procedure were explained to the patient and informed written consent obtained. Sonography of the abdomen was performed in a supine position. This revealed a moderate amount of non-loculated ascites, greatest in the right lower quadrant. A puncture site was selected and the area was prepped and draped in the usual sterile fashion. 1% Xylocaine was used to anesthetize the skin and soft tissues. A 7 Hungarian paracentesis catheter was trocared into the right lower quadrantand 3100 cc of serosanguineous fluid were aspirated. No labs were sent given the recent paracentesis. IMPRESSION: Ultrasound-guided paracentesis in the right lower quadrant. 3100 cc of serosanguineous fluid were aspirated. No labs were sent.
[2017-08-10 06:11] VITALS: O2SAT 93
[2017-08-10] MEDS: Pantoprazole 40 mg EC Tab PO SCH (06:15)
[2017-08-10 06:48] LABS: BASO # 0.04 K/mm3 (0.0-2.0); BASO % 0.8 % (0.0-3.0); EOS # 0.3 (0.0-0.7); GRAN # 3.12 (1.4-6.5); GRAN % 60.2 % (50.0-68.0); LYMPH # 1.1 (1.2-3.4); LYMPH % 21.8 % (22.0-35.0); MEAN CELL VOLUME 96.4 fl (80.0-105.0); MEAN CORPUSCULAR HEMOGLOBIN 30.8 pg (25.0-35.0); MEAN CORPUSCULAR HGB CONC 31.9 g/dl (31.0-37.0); MONO # 0.6 (0.1-0.6); MONO % 11.2 % (1.0-6.0); RBC 3.9 10^6/uL (3.5-6.1); RED CELL DISTRIBUTION WIDTH 14.1 % (11.5-14.5); WHITE BLOOD COUNT 5.2 10^3/ul (4.5-11.0)
[2017-08-10 07:18] LABS: ALB/GLOB RATIO 1.4 (1.1-1.8); ALBUMIN 3.9 g/dL (3.0-4.8); ALT/SGPT 29 U/L (7-56); AST/SGOT 32 U/L (17-59); BLOOD UREA NITROGEN 16 mg/dL (7-21); GFR AFRICAN-AMERICAN > 60; GFR NON-AFRICAN AMERICAN > 60; INR 2.56 (0.93-1.08)
--- NOTE | 2017-08-10 08:31 | CP.PCM.PN ---
Subjective - Date & Time of Evaluation Date of Evaluation: 08/10/17 Time of Evaluation: 07:00 - Subjective Subjective: Stable on 2R, s/p paracentesis yesterday. 3100cc removed. No CP or SOB. V/S noted. AF im 70s PE: Lungs: rhonchi Cor.: irreg S1S2, Sys. murmru Abd.: obese Ext: lymphedema Neuro.: alert I/O= 1320/1900. Also paracentesis 3100 cc removed. Labs noted: INR = 2.56, BMP OK Urine: + GNR Echo done: will read. Objective - Vital Signs/Intake and Output Vital Signs (last 24 hours): Temp Pulse Resp BP Pulse Ox 97.6 F 72 20 132/72 93 L 08/10/17 04:00 08/10/17 06:00 08/10/17 04:00 08/10/17 04:00 08/10/17 04:00 Intake and Output: 08/10/17 08/10/17 06:59 18:59 Intake Total 660 Output Total 1300 Balance -640 - Medications Medications: Current Medications Digoxin (Lanoxin) 0.25 mg PO 1400 [facility] Last Admin: 08/09/17 13:20 Dose: Not Given Furosemide (Lasix) 40 mg IVP Q12 [facility] Last Admin: 08/09/17 22:07 Dose: Not Given Ceftriaxone Sodium (Rocephin 1 Gram Ivpb) 1 gm in 100 mls @ 100 mls/hr IVPB DAILY [facility] PRN Reason: Protocol Stop: 08/12/17 15:01 Last Admin: 08/09/17 15:54 Dose: 100 mls/hr Metoprolol Tartrate (Lopressor) 100 mg PO BRK [facility] Last Admin: 08/09/17 08:41 Dose: Not Given Pantoprazole Sodium (Protonix Ec Tab) 40 mg PO 0600 [facility] Last Admin: 08/10/17 06:15 Dose: 40 mg Spironolactone (Aldactone) 25 mg PO BID [facility] Last Admin: 08/09/17 18:36 Dose: 25 mg Tramadol HCl (Ultram) 50 mg PO Q6H PRN PRN Reason: Pain, moderate (4-7) Last Admin: 08/09/17 18:36 Dose: 50 mg Zolpidem Tartrate (Ambien) 10 mg PO HS PRN; Protocol PRN Reason: Insomnia Last Admin: 08/09/17 22:10 Dose: 10 mg - Labs Labs: 08/10/17 05:30 08/10/17 05:30 PT 30.0 SECONDS (9.4-12.5) H 08/10/17 05:30 INR 2.56 (0.93-1.08) H 08/10/17 05:30 APTT 38.4 Seconds (25.1-36.5) H 08/08/17 14:30 Assessment and Plan - Assessment and Plan (Free Text) Assessment: Dyspnea/50 lb weight gain/ increased ascites and edema Chronic Lymphedema and Elephantiasis/H/O cellulitis Right Heart Failure with moderate TR and mod/sev PH Chronic AF on warfarin Possible UTI HBP Morbid Obesity Cirrhosis. etoh H/O Gastric Bypass Former Smoker Daily ETOH GERD Plan: Continue Lasix IV and spironolactone OOB as zainab Monitor I/O, labs, INRs, sats., weights, etc Will follow. D/C ETOH
--- NOTE | 2017-08-10 09:02 | CARD ---
APPROVED REPORT EXAM: Two-dimensional and M-mode echocardiogram with Doppler and color Doppler. Other Information Quality : AverageRhythm : INDICATION Dyspnea , edema, ascites 2D DIMENSIONS Left Atrium (2D)4.4 (1.6-4.0cm)IVSd1.1 (0.7-1.1cm) LVDd5.0 (3.9-5.9cm)PWd1.2 (0.7-1.1cm) LVDs3.4 (2.5-4.0cm)FS (%) 32.9 % LVEF (%)61.0 (>50%) M-Mode DIMENSIONS Aortic Root2.80 (2.2-3.7cm)Aortic Cusp Exc.1.60 (1.5-2.0cm) Aortic Valve AoV Peak Idtbtuin291.0cm/s Mitral Valve E/A ratio0.0 TDI E/Lateral E'0.0E/Medial E'0.0 Pulmonary Valve PV Peak Laahxjzt20.8cm/sPV Peak Grad.3mmHg Tricuspid Valve TR Peak [id number] [id number] Peak Gr.72mmHg [id number] LEFT VENTRICLE The left ventricle is normal size. There is normal left ventricular wall thickness. The left ventricular function is normal. The left ventricular ejection fraction is within the normal range. There is normal LV segmental wall motion. RIGHT VENTRICLE The right ventricle is moderately dilated. ATRIA The left atrium is mildly dilated. The right atrium is moderately dilated. The interatrial septum is intact with no evidence for an atrial septal defect. AORTIC VALVE The aortic valve is normal in structure. MITRAL VALVE The mitral valve is normal in structure. Mitral regurgitation is mild. TRICUSPID VALVE The tricuspid valve is normal in structure. There is moderate to severe tricuspid regurgitation. There is severe pulmonary hypertension. GREAT VESSELS The aortic root is normal in size. PERICARDIAL EFFUSION There is no pericardial effusion. <Conclusion> The left ventricle is normal size. There is normal left ventricular wall thickness. The left ventricular function is normal. Mitral regurgitation is mild. There is moderate to severe tricuspid regurgitation. There is severe pulmonary hypertension.
[2017-08-10] MEDS: cefTRIAXone 1 gm 1 GM/100 ML BAG IVPB SCH (10:25)
--- NOTE | 2017-08-10 11:32 | CP.PCM.DIS ---
<Nadiya Ansari - Last Filed: 08/10/17 13:33> Provider - Provider Date of Admission: 08/09/17 11:53 Attending physician: Rodriguez Land MD Primary care physician: Rob Carter MD Consults: Dr. Myrick Cardiology Dr. Fuentes REYES Time Spent in preparation of Discharge (in minutes): 35 Hospital Course - Lab Results Lab Results: Most Recent Lab Values WBC 5.2 10^3/ul (4.5-11.0) 08/10/17 05:30 RBC 3.90 10^6/uL (3.5-6.1) 08/10/17 05:30 Hgb 12.0 g/dL (14.0-18.0) L 08/10/17 05:30 Hct 37.6 % (42.0-52.0) L 08/10/17 05:30 MCV 96.4 fl (80.0-105.0) 08/10/17 05:30 MCH 30.8 pg (25.0-35.0) 08/10/17 05:30 MCHC 31.9 g/dl (31.0-37.0) 08/10/17 05:30 RDW 14.1 % (11.5-14.5) 08/10/17 05:30 Plt Count 179 10^3/uL (120.0-450.0) 08/10/17 05:30 MPV 10.0 fl (7.0-11.0) 08/10/17 05:30 Gran % 60.2 % (50.0-68.0) 08/10/17 05:30 Lymph % (Auto) 21.8 % (22.0-35.0) L 08/10/17 05:30 [place] % (Auto) 11.2 % (1.0-6.0) H 08/10/17 05:30 Eos % (Auto) 6.0 % (1.5-5.0) H 08/10/17 05:30 Baso % (Auto) 0.8 % (0.0-3.0) 08/10/17 05:30 Gran # 3.12 (1.4-6.5) 08/10/17 05:30 Lymph # (Auto) 1.1 (1.2-3.4) L 08/10/17 05:30 [place] # (Auto) 0.6 (0.1-0.6) 08/10/17 05:30 Eos # (Auto) 0.3 (0.0-0.7) 08/10/17 05:30 Baso # (Auto) 0.04 K/mm3 (0.0-2.0) 08/10/17 05:30 PT 30.0 SECONDS (9.4-12.5) H 08/10/17 05:30 INR 2.56 (0.93-1.08) H 08/10/17 05:30 APTT 38.4 Seconds (25.1-36.5) H 08/08/17 14:30 Sodium 138 mmol/L (132-148) 08/10/17 05:30 Potassium 4.6 mmol/L (3.6-5.0) 08/10/17 05:30 Chloride 100 mmol/L (98-107) 08/10/17 05:30 Carbon Dioxide 27 mmol/L (21-33) 08/10/17 05:30 Anion Gap 16 (10-20) 08/10/17 05:30 BUN 16 mg/dL (7-21) 08/10/17 05:30 Creatinine 0.8 mg/dl (0.8-1.5) 08/10/17 05:30 Est GFR ( Amer) > 60 08/10/17 05:30 Est GFR (Non-Af Amer) > 60 08/10/17 05:30 Random Glucose 90 mg/dL (70-110) 08/10/17 05:30 Calcium 9.0 mg/dL (8.4-10.5) 08/10/17 05:30 Magnesium 1.9 mg/dL (1.7-2.2) 08/08/17 14:30 Total Bilirubin 3.0 mg/dL (0.2-1.3) H 08/10/17 05:30 AST 32 U/L (17-59) 08/10/17 05:30 ALT 29 U/L (7-56) 08/10/17 05:30 Alkaline Phosphatase 82 U/L (38-126) 08/10/17 05:30 Lactate Dehydrogenase 457 U/L (333-699) 08/08/17 14:30 Total Creatine Kinase 80 U/L (35-230) 08/08/17 14:30 Troponin I < 0.01 ng/mL 08/08/17 14:30 NT-Pro-B Natriuret Pep 1110 pg/mL (0-450) H 08/08/17 14:30 Total Protein 6.8 g/dL (5.8-8.3) 08/10/17 05:30 Albumin 3.9 g/dL (3.0-4.8) 08/10/17 05:30 Globulin 2.9 gm/dL 08/10/17 05:30 Albumin/Globulin Ratio 1.4 (1.1-1.8) 08/10/17 05:30 Lipase 162 U/L (23-300) 08/08/17 14:30 Urine Color Yellow (YELLOW) 08/09/17 12:10 Urine Appearance Clear (CLEAR) 08/09/17 12:10 Urine pH 5.5 (4.7-8.0) 08/09/17 12:10 Ur Specific [place] <= 1.005 (1.005-1.035) 08/09/17 12:10 Urine Protein Negative mg/dL (<30 mg/dL) 08/09/17 12:10 Urine Glucose (UA) Negative mg/dL (NEGATIVE) 08/09/17 12:10 Urine Ketones Negative mg/dL (NEGATIVE) 08/09/17 12:10 Urine Blood Negative (NEGATIVE) 08/09/17 12:10 Urine Nitrate Negative (NEGATIVE) 08/09/17 12:10 Urine Bilirubin Negative (NEGATIVE) 08/09/17 12:10 Urine Urobilinogen 0.2 E.U./dL (<1 E.U./dL) 08/09/17 12:10 Ur Leukocyte Esterase Small Brian/uL (NEGATIVE) H 08/09/17 12:10 Urine RBC 0 - 2 /hpf (0-2) 08/09/17 12:10 Urine WBC 5 - 10 /hpf (0-6) 08/09/17 12:10 Ur Epithelial Cells None /hpf (0-5) 08/09/17 12:10 Urine Bacteria Few (NEG) 08/09/17 12:10 Digoxin 1.0 ng/mL (0.8-2.0) 08/08/17 14:30 - Hospital Course Hospital Course: 62 year old male with past medical history of ascites, CHF, atrial fibrillation , morbid obesity, lymphadema, GERD, Pulmonary HTN who presented with shortness of breath. Patient states shortness of breath began yesterday. When he tries to ambulate a small distance he feels like he can't breath and he has also noted his belly has been getting gradually more distended. He was prescribed a diuretic but did not use it secondary to it causing him to urinate to frequently. In the ED he was found to have a supratherapeutic INR, an elevated BNP, and a UTI. Interventional radiology drained 3.1 L of serosanguinous fluid while cardiology re-instated diuretic therapy. An Echocardiogram showed moderate to severe tricuspid regurgitation and severe pulmonary hypertension. The patient was treated with IV Rocephin for the UTI; but switched to PO ciprofloxacin upon discharge. He was discharged with the below written instruction and prescriptions, including, but not limited to, 1) Patient to follow with Dr. Carter or his Primary Medical Doctor within one week of discharge and get kidney function and electrolytes checked. 2) Patient to check weight daily. take all medications as prescribed, unless otherwise indicated. 3) Patient to get INR rechecked and adjust dosage of Warfarin with PMD. 4) Patient to obtain outpatient sleep study. Your PMD should arrange for this. 5) Patient to abstain from alcohol, tobacco, and drug use. 6) Patient to limit fluid intake to less than 1500 ml a day 7) Patient to eat a diet that contains less than 2 grams of Na each day. 8) Patient to take any prescriptions as directed, unless otherwise indicated. 9) You were also found to have a UTI. Take the Ciprofloxacin as directed. 10) Patient has an appointment with Dr. Myrick at 2:45 PM on 08/15/17. - Date & Time of H&P Date of H&P: 08/03/17 Time of H&P: 13:21 Discharge Exam - Head Exam Head Exam: ATRAUMATIC, NORMOCEPHALIC - Eye Exam Eye Exam: EOMI, Normal appearance - ENT Exam ENT Exam: Mucous Membranes Moist, Normal Oropharynx - Neck Exam Neck exam: Normal Inspection - Respiratory Exam Respiratory Exam: Clear to PA & Lateral, NORMAL BREATHING PATTERN. absent: Accessory Muscle Use - Cardiovascular Exam Cardiovascular Exam: RRR, +S1, +S2 - GI/Abdominal Exam GI & Abdominal Exam: Normal Bowel Sounds. absent: Guarding - Extremities Exam Extremities exam: pedal edema - Neurological Exam Neurological exam: Alert, CN II-XII Intact, Oriented x3 - Psychiatric Exam Psychiatric exam: Normal Affect, Normal Mood - Skin Skin Exam: Dry, Intact, Normal Color, Warm Discharge Plan - Discharge Medications Prescriptions: Ciprofloxacin HCl [Cipro] 250 mg PO Q12H #6 tablet Digoxin [Lanoxin] 0.25 mg PO DAILY #30 tab Furosemide [Lasix] 40 mg PO DAILY #30 tablet Spironolactone [Aldactone] 100 mg PO ONCE #30 tab Warfarin [Coumadin] 2 mg PO 1800 #15 tab - Follow Up Plan Condition: STABLE Disposition: HOME/ ROUTINE Instructions: Abdominal Paracentesis, Heart Failure (DC), Heart Failure (GEN), Pacemaker (DC), Pacemaker (GEN), Pulmonary Edema (DC), Pulmonary Edema (GEN), Ascites (DC), Ascites (GEN) Additional Instructions: 1) Patient to follow with Dr. Carter or Primary Medical Doctor within one week of discharge and get kidney function and electrolytes checked. 2) Patient to check weight daily. take all medications as prescribed. 3) Patient to get INR rechecked and adjust dosage of Warfarin with PMD. 4) Patient to obtain outpatient sleep study. Your PMD should arrange for this. 5) Patient to abstain from alcohol, tobacco, and drug use. 6) Patient to limit fluid intake to less than 1500 ml a day 7) Patient to eat a diet that contains less than 2 grams of Na each day. 8) Patient to take any prescriptions as directed, unless otherwise indicated. 9) You were also found to have a UTI. Take the Ciprofloxacin as directed. Nursing Follow up in Dr. Myrick office on Monday08/15/17 at 2:45 pm , the appointment has already been made. If you begin to experience chest pain, shortness of breath, your symptoms return or any changes return to the emergency room or call 911. See care notes provided for further instructions. Referrals: Rob Carter MD [Primary Care Provider] - Clinical Quality Measures - CQM - Heart Failure Ejection Fraction: 40 % or Greater Left Ventricular Function to be assessed after discharge: No Beta-Doug Prescribed: Metoprolol Succinate Contraindication/Reason for not providing: ascites AnticoagulationTherapy for Atrial Fibrillation/Atrialflutter: Yes Cardiac Resynchronization Therapy Prescribed: No Contraindication/Reason for not providing: not indicated Follow Up Date (must be within 7 days from discharge): 08/15/17 Follow Up Time: 09:00 <Rodriguez Land - Last Filed: 08/10/17 18:46> Provider - Provider Date of Admission: 08/09/17 11:53 Attending physician: Rodriguez Land MD Primary care physician: Rob Carter MD Hospital Course - Lab Results Lab Results: Most Recent Lab Values WBC 5.2 10^3/ul (4.5-11.0) 08/10/17 05:30 RBC 3.90 10^6/uL (3.5-6.1) 08/10/17 05:30 Hgb 12.0 g/dL (14.0-18.0) L 08/10/17 05:30 Hct 37.6 % (42.0-52.0) L 08/10/17 05:30 MCV 96.4 fl (80.0-105.0) 08/10/17 05:30 MCH 30.8 pg (25.0-35.0) 08/10/17 05:30 MCHC 31.9 g/dl (31.0-37.0) 08/10/17 05:30 RDW 14.1 % (11.5-14.5) 08/10/17 05:30 Plt Count 179 10^3/uL (120.0-450.0) 08/10/17 05:30 MPV 10.0 fl (7.0-11.0) 08/10/17 05:30 Gran % 60.2 % (50.0-68.0) 08/10/17 05:30 Lymph % (Auto) 21.8 % (22.0-35.0) L 08/10/17 05:30 [place] % (Auto) 11.2 % (1.0-6.0) H 08/10/17 05:30 Eos % (Auto) 6.0 % (1.5-5.0) H 08/10/17 05:30 Baso % (Auto) 0.8 % (0.0-3.0) 08/10/17 05:30 Gran # 3.12 (1.4-6.5) 08/10/17 05:30 Lymph # (Auto) 1.1 (1.2-3.4) L 08/10/17 05:30 [place] # (Auto) 0.6 (0.1-0.6) 08/10/17 05:30 Eos # (Auto) 0.3 (0.0-0.7) 08/10/17 05:30 Baso # (Auto) 0.04 K/mm3 (0.0-2.0) 08/10/17 05:30 PT 30.0 SECONDS (9.4-12.5) H 08/10/17 05:30 INR 2.56 (0.93-1.08) H 08/10/17 05:30 APTT 38.4 Seconds (25.1-36.5) H 08/08/17 14:30 Sodium 138 mmol/L (132-148) 08/10/17 05:30 Potassium 4.6 mmol/L (3.6-5.0) 08/10/17 05:30 Chloride 100 mmol/L (98-107) 08/10/17 05:30 Carbon Dioxide 27 mmol/L (21-33) 08/10/17 05:30 Anion Gap 16 (10-20) 08/10/17 05:30 BUN 16 mg/dL (7-21) 08/10/17 05:30 Creatinine 0.8 mg/dl (0.8-1.5) 08/10/17 05:30 Est GFR ( Amer) > 60 08/10/17 05:30 Est GFR (Non-Af Amer) > 60 08/10/17 05:30 Random Glucose 90 mg/dL (70-110) 08/10/17 05:30 Calcium 9.0 mg/dL (8.4-10.5) 08/10/17 05:30 Magnesium 1.9 mg/dL (1.7-2.2) 08/08/17 14:30 Total Bilirubin 3.0 mg/dL (0.2-1.3) H 08/10/17 05:30 AST 32 U/L (17-59) 08/10/17 05:30 ALT 29 U/L (7-56) 08/10/17 05:30 Alkaline Phosphatase 82 U/L (38-126) 08/10/17 05:30 Lactate Dehydrogenase 457 U/L (333-699) 08/08/17 14:30 Total Creatine Kinase 80 U/L (35-230) 08/08/17 14:30 Troponin I < 0.01 ng/mL 08/08/17 14:30 NT-Pro-B Natriuret Pep 1110 pg/mL (0-450) H 08/08/17 14:30 Total Protein 6.8 g/dL (5.8-8.3) 08/10/17 05:30 Albumin 3.9 g/dL (3.0-4.8) 08/10/17 05:30 Globulin 2.9 gm/dL 08/10/17 05:30 Albumin/Globulin Ratio 1.4 (1.1-1.8) 08/10/17 05:30 Lipase 162 U/L (23-300) 08/08/17 14:30 Urine Color Yellow (YELLOW) 08/09/17 12:10 Urine Appearance Clear (CLEAR) 08/09/17 12:10 Urine pH 5.5 (4.7-8.0) 08/09/17 12:10 Ur Specific [place] <= 1.005 (1.005-1.035) 08/09/17 12:10 Urine Protein Negative mg/dL (<30 mg/dL) 08/09/17 12:10 Urine Glucose (UA) Negative mg/dL (NEGATIVE) 08/09/17 12:10 Urine Ketones Negative mg/dL (NEGATIVE) 08/09/17 12:10 Urine Blood Negative (NEGATIVE) 08/09/17 12:10 Urine Nitrate Negative (NEGATIVE) 08/09/17 12:10 Urine Bilirubin Negative (NEGATIVE) 08/09/17 12:10 Urine Urobilinogen 0.2 E.U./dL (<1 E.U./dL) 08/09/17 12:10 Ur Leukocyte Esterase Small Brian/uL (NEGATIVE) H 08/09/17 12:10 Urine RBC 0 - 2 /hpf (0-2) 08/09/17 12:10 Urine WBC 5 - 10 /hpf (0-6) 08/09/17 12:10 Ur Epithelial Cells None /hpf (0-5) 08/09/17 12:10 Urine Bacteria Few (NEG) 08/09/17 12:10 Digoxin 1.0 ng/mL (0.8-2.0) 08/08/17 14:30 Attending/Attestation - Attestation I have personally seen and examined this patient.: Yes I have fully participated in the care of the patient.: Yes I have reviewed all pertinent clinical information, including history, physical exam and plan: Yes Notes (Text): 08/10/17 18:41 Medical record note made by the resident after discussion with my direction and input after the patient was personally seen and examined by me. I have reviewed the chart and agree that the record accurately reflects by personal performance of the history, physical exam, data review, and medical decision-making, in the course for the patient. I have also personally directed the plan of care 62 year old male with past medical history of Morbid Obesity,HTN, diastolic CHF , atrial fibrillation on anticoagulation with warfarin, , lymphadema, GERD, and Pulmonary HTN was admitted with dyspnea on exertion and worsening abdominal swelling.Patient dyspnea was due to fluid overload, he was treated with IV lasix and aldactone.2D Echo showed severe Pulmonary HTN .He had Paracentesis yesterday and is feeling better.He is ambulatory and is on room air.He has been started on oral lasix and aldactone.He has sevre Pulmonary HTN due to DRAKE and obesity Hypoventilation syndrome.He need sleep study as out patient.This was discussed in detail with him.He was also advised to take his lasix and aldactone..The issue of compliance with medication was discussed in detail.Patient warfarin dose is reduced to 2 mg daily and he he will need repeat INR on Monday08/14/18, his dose may need to be changed depending on INR. Management plan was discussed in detail with patient. Education was provided.
[2017-08-10] MEDS: Digoxin 250 mcg (0.25 mg) Tab PO SCH (14:08)
[2017-08-10 14:11] VITALS: BP 117/63; PULSE 83; RESP 21; TEMP 97.5
== END 2017-08-10 15:40 | disposition home or self-care (01) | DRG 292 ==
LOC: ED 13:10 → ERH 17:11 → 2RNO 19:18 → OBSVTOIN 08-09 11:53
PROVIDERS: ADMIT Internal Medicine; ATTEND Internal Medicine
PROC: BW40ZZZ Ultrasonography of Abdomen (ICD-10-PCS; 2017-08-09)
PROC: 0W9G3ZZ Drainage of Peritoneal Cavity, Percutaneous Approach (ICD-10-PCS; principal; 2017-08-09 16:00)
DX: I11.0 Hypertensive heart disease with heart failure (principal); N39.0 Urinary tract infection, site not specified; R18.8 Other ascites; E66.2 Morbid (severe) obesity with alveolar hypoventilation; Z68.43 Body mass index [BMI] 50.0-59.9, adult; I50.32 Chronic diastolic (congestive) heart failure; I07.1 Rheumatic tricuspid insufficiency; I27.29 Other secondary pulmonary hypertension; I48.2 Chronic atrial fibrillation; I50.82 Biventricular heart failure; G47.33 Obstructive sleep apnea (adult) (pediatric); I89.0 Lymphedema, not elsewhere classified; K21.9 Gastro-esophageal reflux disease without esophagitis; K70.9 Alcoholic liver disease, unspecified; K74.60 Unspecified cirrhosis of liver; M06.9 Rheumatoid arthritis, unspecified; R79.1 Abnormal coagulation profile; Z79.01 Long term (current) use of anticoagulants; Z82.3 Family history of stroke; Z82.49 Family history of ischemic heart disease and other diseases of the circulatory system; Z83.3 Family history of diabetes mellitus; Z87.891 Personal history of nicotine dependence; Z98.84 Bariatric surgery status; B96.20 Unspecified Escherichia coli [E. coli] as the cause of diseases classified elsewhere

== ENCOUNTER 2017-10-18 14:54 | Inpatient (IN) | payer MEDICARE, OTHER ==
--- NOTE | 2017-10-18 15:31 | ED PDOC ---
Arrival/HPI - General Time Seen by Provider: 10/18/17 14:55 Historian: Patient - History of Present Illness Narrative History of Present Illness (Text): 10/18/17 15:23 Woodrow Ritter is a morbidly obese 62 year old male, whose past medical history includes ascites, atrial fibrillation, morbid obesity, lymphedema, GERD , pulmonary Hypertension, who presents to the emergency room complaining of shortness of breath since today. Patient reports baseline weight of 330 pounds, but currently weighs 390+ pounds. Patient notes symptoms are worsened when lying flat and improved when sitting up. As per patient symptoms are similar to last visit, which required diuresis and paracentesis with resolved symptoms. Patient denies fever, chest pain, back pain, neck pain, cough, nausea, vomiting , diarrhea, abdominal pain, dysuria, or any other complaints. PMD:Dr. Brown ESOL TEACHER: Dr. Ziegler Time/Duration: Prior to Arrival Symptom Onset: Gradual Symptom Course: Unchanged Activities at Onset: Light Past Medical History - Provider Review Nursing Documentation Reviewed: Yes - Infectious Disease Hx of Infectious Diseases: None - Tetanus Immunization Tetanus Immunization: Unknown - Cardiac Hx Cardiac Disorders: Yes Hx Hypertension: Yes - Pulmonary Hx Respiratory Disorders: No - Neurological Hx Neurological Disorder: No - HEENT Hx HEENT Disorder: No - Renal Hx Renal Disorder: No - Endocrine/Metabolic Hx Endocrine Disorders: No - Hematological/Oncological Hx Blood Disorders: No - Integumentary Hx Dermatological Disorder: No - Musculoskeletal/Rheumatological Hx Musculoskeletal Disorders: Yes Hx Falls: No Hx Herniated Disk: Yes - Gastrointestinal Hx Gastrointestinal Disorders: Yes - Genitourinary/Gynecological Hx Genitourinary Disorders: No - Psychiatric Hx Psychophysiologic Disorder: No Hx Substance Use: No - Surgical History Hx Gastric Bypass Surgery: Yes (1999) Other/Comment: Cardiac ablation for atrial fibrillation - Anesthesia Hx Anesthesia Reactions: No Hx Malignant Hyperthermia: No - Suicidal Assessment Feels Threatened In Home Enviroment: No Family/Social History - Physician Review Nursing Documentation Reviewed: Yes Family/Social History: Unknown Family HX Smoking Status: Former Smoker Hx Alcohol Use: No Hx Substance Use: No Hx Substance Use Treatment: No Allergies/Home Meds Allergies/Adverse Reactions: Allergies No Known Allergies Allergy (Verified 10/18/17 16:11) Home Medications: Home Meds Medication Instructions Recorded Confirmed Metoprolol Tartrate 100 mg PO DAILY 07/14/17 10/18/17 Review of Systems - Physician Review All systems were reviewed & negative as marked: Yes - Review of Systems Constitutional: absent: Fevers Respiratory: SOB Cardiovascular: absent: Chest Pain Physical Exam - Physical Exam Narrative Physical Exam (Text): 10/18/17 15:23 Constitutional: No acute distress. Morbidly obese. Head: Normocephalic. Atraumatic. Eyes: PERRL. ENT: Moist mucous membranes. Neck: Supple. Cardiovascular: Regular rate. Chest: No tenderness. Respiratory: Clear to auscultation bilaterally. GI: Soft. Nontender. Nondistended. Back: No CVA tenderness. Musculoskeletal: No tenderness or swelling of extremities. Lower Extremities: Bilateral lymphedema. Chronic skin changes. Skin: No rash. Neurologic: Alert, no focal deficit. Vital Signs Reviewed: Yes Vital Signs Temp Pulse Resp BP Pulse Ox 10/18/17 16:40 73 18 143/65 98 10/18/17 15:05 98.2 F 70 18 142/63 99 Temperature: Afebrile Blood Pressure: Normal Pulse: Regular Respiratory Rate: Normal Appearance: Positive for: Other (morbidly obese) Pain Distress: None Mental Status: Positive for: Alert and Oriented X 3 Medical Decision Making ED Course and Treatment: 10/18/17 15:23 Impression: Woodrow Ritter is a 62 year old male who presents to the emergency room for shortness of breath. Plan: -- Labs -- Chest X-ray -- Reassess and disposition Prior Visits: Notes and results from previous visits were reviewed. Patient presented to the Emergency department on 08/08/17 for shortness of breath and was admitted to the hospital for further observation. Progress Notes: 10/18/17 15:30 Chest X-Ray reviewed by radiologist, shows: No active disease. EKG Afib 56 bpm, no ST elevations. Dr. Land accepts patient to hospitalist service. - Lab Interpretations Lab Results: 10/18/17 15:40 10/18/17 16:08 Lab Results 10/18/17 16:08: Digoxin 1.3 10/18/17 16:08: Sodium 131 L, Potassium 4.9, Chloride 93 L, Carbon Dioxide 28, Anion Gap 16, BUN 12, Creatinine 0.7 L, Est GFR ( Amer) > 60, Est GFR ( Non-Af Amer) > 60, Random Glucose 92, Calcium 8.8, Total Bilirubin 2.6 H, AST 27 , ALT 28, Alkaline Phosphatase 95, NT-Pro-B Natriuret Pep 1600 H, Total Protein 6.9, Albumin 3.8, Globulin 3.1, Albumin/Globulin Ratio 1.2 10/18/17 15:40: PT 23.2 H, INR 2.01 H, APTT 33.8 10/18/17 15:40: WBC 8.9 D, RBC 3.70, Hgb 10.7 L, Hct 32.4 L, MCV 87.6 D, MCH 28.9, MCHC 33.0, RDW 15.6 H, Plt Count 305, MPV 9.5, Gran % 66.6, Lymph % (Auto ) 18.8 L, [place] % (Auto) 8.9 H, Eos % (Auto) 4.7, Baso % (Auto) 1.0, Gran # 5.89 , Lymph # (Auto) 1.7, [place] # (Auto) 0.8 H, Eos # (Auto) 0.4, Baso # (Auto) 0.09 - RAD Interpretation Radiology Orders: 10/18/17 15:20 CHEST PORTABLE [RAD] Stat - Medication Orders Current Medication Orders: Discontinued Medications Morphine Sulfate (Morphine) 2 mg IVP STAT STA Stop: 10/18/17 16:41 Last Admin: 10/18/17 16:50 Dose: 2 mg MAR Pain Assessment Document 10/18/17 16:50 SF (Rec: 10/18/17 16:50 [id number]) Pain Reassessment Is this a pain reassessment? Yes Sleep Is patient sleeping during reassessment? No Presence of Pain Presence of Pain Yes Pain Scale Used Pain Scale Used Numeric Location Left, Right or Bilateral Bilateral Pain Location Body Site Back Knee Description Description Constant IVP Administration Document 10/18/17 16:50 SF (Rec: 10/18/17 16:50 SF [id number]) Charges for Administration # of IVP Administrations 1 - Scribe Statement The provider has reviewed the documentation as recorded by the Scribe Michelle Saunders, training with Kev Claros. All medical record entries made by the Scribantoni were at my direction and personally dictated by me. I have reviewed the chart and agree that the record accurately reflects my personal performance of the history, physical exam, medical decision making, and the department course for this patient. I have also personally directed, reviewed, and agree with the discharge instructions and disposition. Disposition/Present on Arrival - Present on Arrival Any Indicators Present on Arrival: No History of DVT/PE: No History of Uncontrolled Diabetes: No Urinary Catheter: No History Surgical Site Infection Following: None - Disposition Have Diagnosis and Disposition been Completed?: Yes Diagnosis: Shortness of breath, Ascites Disposition: HOSPITALIZED Disposition Time: 17:45 Patient Plan: Admission Condition: GUARDED
--- NOTE | 2017-10-18 15:40 | RAD ---
Date of service: 10/18/2017 HISTORY: dyspnea COMPARISON: 08/08/2017 FINDINGS: LUNGS: No active pulmonary disease. PLEURA: No significant pleural effusion identified, no pneumothorax apparent. CARDIOVASCULAR: Normal. OSSEOUS STRUCTURES: No significant abnormalities. VISUALIZED UPPER ABDOMEN: Normal. OTHER FINDINGS: None. IMPRESSION: No active disease.
[2017-10-18 15:55] LABS: BASO # 0.09 K/mm3 (0.0-2.0); EOS # 0.4 (0.0-0.7); EOS % 4.7 % (1.5-5.0); GRAN # 5.89 (1.4-6.5); GRAN % 66.6 % (50.0-68.0); HEMOGLOBIN 10.7 g/dL (14.0-18.0); LYMPH # 1.7 (1.2-3.4); LYMPH % 18.8 % (22.0-35.0); MEAN CELL VOLUME 87.6 fl (80.0-105.0); MEAN CORPUSCULAR HEMOGLOBIN 28.9 pg (25.0-35.0); MEAN PLATELET VOLUME 9.5 fl (7.0-11.0); MONO # 0.8 (0.1-0.6); MONO % 8.9 % (1.0-6.0); RBC 3.7 10^6/uL (3.5-6.1); RED CELL DISTRIBUTION WIDTH 15.6 % (11.5-14.5); WHITE BLOOD COUNT 8.9 10^3/ul (4.5-11.0)
[2017-10-18 16:03] LABS: INR 2.01 (0.93-1.08); PARTIAL THROMBOPLASTIN TIME 33.8 Seconds (25.1-36.5); PROTHROMBIN TIME 23.2 SECONDS (9.4-12.5)
[2017-10-18 16:23] LABS: ALB/GLOB RATIO 1.2 (1.1-1.8); ALBUMIN 3.8 g/dL (3.0-4.8); ALT/SGPT 28 U/L (7-56); AST/SGOT 27 U/L (17-59); BLOOD UREA NITROGEN 12 mg/dL (7-21); CALCIUM 8.8 mg/dL (8.4-10.5); GFR AFRICAN-AMERICAN > 60; GFR NON-AFRICAN AMERICAN > 60
[2017-10-18 16:32] LABS: B-TYPE NATRIURETIC PEPTIDE 1600 pg/mL (0-450)
[2017-10-18] MEDS ORDERED: Morphine 5 MG/ML SYRINGE IVP STA (16:37)
[2017-10-18] MEDS ORDERED: Morphine 2 mg/2 mL syringe IVP STA (16:39)
[2017-10-18] MEDS ORDERED: Morphine 2 mg/ml ISec IVP STA (16:40)
--- NOTE | 2017-10-18 18:37 | CP.PCM.HP ---
Addendum entered and electronically signed by Nadiya Ansari DO 10/19/17 06:44 : IR consult rescinded, will convey to primary team Original Note: <Nadiya Ansari - Last Filed: 10/18/17 20:30> History of Present Illness - History of Present Illness History of Present Illness: Nadiya Ansari DO, PGY-2: HPI for Dr. Land, Hospitalist Service 62 year old male with past medical history of ascites, CHF, atrial fibrillation , morbid obesity, lymphedema, GERD, Pulmonary HTN who presented with shortness of breath. Patient states shortness of breath began yesterday. When he tries to ambulate a small distance he feels like he can't breath and he has also noted his belly has been getting gradually more distended. He was prescribed a Spirinolactone but did not use it secondary to it causing him to urinate to frequently. In the ED he was found to have an elevated BNP. Interventional radiology and cardiology were consulted. On his last admission 3.1 L of serosanguinous fluid was drained. An Echocardiogram showed moderate to severe tricuspid regurgitation and severe pulmonary hypertension. He reports gaining 90 plus pounds since the last time he has been tapped. He denies any fever, chills, nausea, vomiting, diarrhea or chest pain. PMH: CHF (distolic dysfunction), atrial fibrillation, morbid obesity, lymphadema , GERD, Pulmonary HTN Med: Coumadin 2.5 mg PO daily, Metoprolol 100 mg PO daily, Digoxin 0.25 PO daily , Tramadol 50 mg PO TID PRN, folic acid Allergy: NKDA PSH: IVC filter placement (2010), Cardiac Ablation (1999), Gastric bypass (1999) Hosp: paracentesis by Dr. Dill in July FH: Mother - CVA, DM; Father - CVA, HTN Social: bottle of wine over 3-4 days, smoked a pack a day, currently is not smoking; he denies illicit drug use. Present on Admission - Present on Admission Any Indicators Present on Admission: No Review of Systems - Review of Systems All systems: reviewed and no additional remarkable complaints except (as per HPI ) Past Patient History - Infectious Disease Hx of Infectious Diseases: None - Tetanus Immunizations Tetanus Immunization: Unknown - Past Social History Smoking Status: Former Smoker - CARDIAC Hx Cardiac Disorders: Yes Hx Hypertension: Yes - PULMONARY Hx Respiratory Disorders: No - NEUROLOGICAL Hx Neurological Disorder: No - HEENT Hx HEENT Problems: No - RENAL Hx Chronic Kidney Disease: No - ENDOCRINE/METABOLIC Hx Endocrine Disorders: No - HEMATOLOGICAL/ONCOLOGICAL Hx Blood Disorders: No - INTEGUMENTARY Hx Dermatological Problems: No - MUSCULOSKELETAL/RHEUMATOLOGICAL Hx Musculoskeletal Disorders: Yes Hx Falls: No Hx Herniated Disk: Yes - GASTROINTESTINAL Hx Gastrointestinal Disorders: Yes - GENITOURINARY/GYNECOLOGICAL Hx Genitourinary Disorders: No - PSYCHIATRIC Hx Psychophysiologic Disorder: No Hx Substance Use: No - SURGICAL HISTORY Hx Gastric Bypass Surgery: Yes (1999) Other/Comment: Cardiac ablation for atrial fibrillation - ANESTHESIA Hx Anesthesia Reactions: No Hx Malignant Hyperthermia: No Meds Allergies/Adverse Reactions: Allergies Allergy/AdvReac Type Severity Reaction Status Date / Time No Known Allergies Allergy Verified 10/18/17 19:47 Physical Exam - Constitutional Appears: Non-toxic - Head Exam Head Exam: ATRAUMATIC, NORMOCEPHALIC - Eye Exam Eye Exam: EOMI, Normal appearance - ENT Exam ENT Exam: Mucous Membranes Moist - Neck Exam Neck exam: Positive for: Normal Inspection - Respiratory Exam Respiratory Exam: Clear to Auscultation Bilateral, NORMAL BREATHING PATTERN. absent: Accessory Muscle Use - Cardiovascular Exam Cardiovascular Exam: RRR, +S1, +S2 - GI/Abdominal Exam GI & Abdominal Exam: Distended. absent: Rebound - Extremities Exam Additional comments: 4/4 pitting edema - Back Exam Back exam: NORMAL INSPECTION. absent: CVA tenderness (L), CVA tenderness (R) - Neurological Exam Neurological exam: Alert, CN II-XII Intact, Oriented x3 - Psychiatric Exam Psychiatric exam: Normal Affect, Normal Mood - Skin Skin Exam: Dry, Intact, Normal Color, Warm Additional comments: LE are reddened Results - Vital Signs Recent Vital Signs: Last Vital Signs Temp 98.2 F 10/18/17 15:05 Pulse 73 10/18/17 16:40 Resp 18 10/18/17 16:40 BP 143/65 10/18/17 16:40 Pulse Ox 98 10/18/17 16:40 - Labs Result Diagrams: 10/18/17 15:40 10/18/17 16:08 Labs: Laboratory Results - last 24 hr 10/18/17 10/18/17 10/18/17 15:40 15:40 16:08 WBC 8.9 D RBC 3.70 Hgb 10.7 L Hct 32.4 L MCV 87.6 D MCH 28.9 MCHC 33.0 RDW 15.6 H Plt Count 305 MPV 9.5 Gran % 66.6 Lymph % (Auto) 18.8 L [place] % (Auto) 8.9 H Eos % (Auto) 4.7 Baso % (Auto) 1.0 Gran # 5.89 Lymph # (Auto) 1.7 [place] # (Auto) 0.8 H Eos # (Auto) 0.4 Baso # (Auto) 0.09 PT 23.2 H INR 2.01 H APTT 33.8 Sodium 131 L Potassium 4.9 Chloride 93 L Carbon Dioxide 28 Anion Gap 16 BUN 12 Creatinine 0.7 L Est GFR ( Amer) > 60 Est GFR (Non-Af Amer) > 60 Random Glucose 92 Calcium 8.8 Total Bilirubin 2.6 H AST 27 ALT 28 Alkaline Phosphatase 95 NT-Pro-B Natriuret Pep 1600 H Total Protein 6.9 Albumin 3.8 Globulin 3.1 Albumin/Globulin Ratio 1.2 Digoxin 10/18/ 16:08 WBC RBC Hgb Hct MCV MCH MCHC RDW Plt Count MPV Gran % Lymph % (Auto) [place] % (Auto) Eos % (Auto) Baso % (Auto) Gran # Lymph # (Auto) [place] # (Auto) Eos # (Auto) Baso # (Auto) PT INR APTT Sodium Potassium Chloride Carbon Dioxide Anion Gap BUN Creatinine Est GFR ( Amer) Est GFR (Non-Af Amer) Random Glucose Calcium Total Bilirubin AST ALT Alkaline Phosphatase NT-Pro-B Natriuret Pep Total Protein Albumin Globulin Albumin/Globulin Ratio Digoxin 1.3 Assessment & Plan - Assessment and Plan (Free Text) Assessment: 62 year old male presenting with dyspnea and ascites 1) CHF with ascites - Lasix 40 mg IVP BID - Spirinolactone 50 mg - Strict I/O - Daily weights - Heart healthy diet - Na 2 gram - 1200 fluid restriction - Dr. Guerrero consulted - GI consulted - Reji Dill consulted for Paracentesis 2) Atrial fibrillation - Continue Metoprolol Succinate 100 mg PO daily (hold if SBP is less than 105 or HR is less than 50) - Warfarin to be held until afer paracentesis; INR in ED was 2.00 - Digoxin 0.25 3) DVT/GI prophylaxis - SCD - Pepcid 20 mg PO HS Case was reviewed and discussed with attending physician, Dr. Land - Date & Time Date: 10/18/17 Time: 20:38 <Rodriguez Land - Last Filed: 10/19/17 18:11> Results - Vital Signs Recent Vital Signs: Last Vital Signs Temp 98.3 F 10/19/17 17:55 Pulse 90 10/19/17 17:55 Resp 20 10/19/17 17:55 BP 148/82 10/19/17 17:55 Pulse Ox 98 10/19/17 05:56 - Labs Result Diagrams: 10/19/17 07:30 10/19/17 07:30 Labs: Laboratory Results - last 24 hr 10/19/17 10/19/17 10/19/17 07:30 07:30 07:30 WBC 8.2 RBC 3.55 Hgb 10.1 L Hct 31.3 L MCV 88.2 MCH 28.5 MCHC 32.3 RDW 15.3 H Plt Count 230 MPV 8.5 Gran % 68.0 Lymph % (Auto) 17.1 L [place] % (Auto) 9.3 H Eos % (Auto) 4.5 Baso % (Auto) 1.1 Gran # 5.56 Lymph # (Auto) 1.4 [place] # (Auto) 0.8 H Eos # (Auto) 0.4 Baso # (Auto) 0.09 PT 24.9 H INR 2.13 H Sodium 131 L Potassium 4.3 Chloride 93 L Carbon Dioxide 28 Anion Gap 14 BUN 13 Creatinine 0.8 Est GFR ( Amer) > 60 Est GFR (Non-Af Amer) > 60 Random Glucose 83 Calcium 8.7 Total Bilirubin 3.1 H AST 25 ALT 29 Alkaline Phosphatase 83 Total Protein 6.4 Albumin 3.5 Globulin 3.0 Albumin/Globulin Ratio 1.2 Fluid Source Fluid Appearance Fluid WBC Fluid RBC Fluid Tot Cell Count Fluid Neutrophils Fluid Lymphocytes Fld Monocyte/Macrophag Fluid Comment 10/19/17 17:34 WBC RBC Hgb Hct MCV MCH MCHC RDW Plt Count MPV Gran % Lymph % (Auto) [place] % (Auto) Eos % (Auto) Baso % (Auto) Gran # Lymph # (Auto) [place] # (Auto) Eos # (Auto) Baso # (Auto) PT INR Sodium Potassium Chloride Carbon Dioxide Anion Gap BUN Creatinine Est GFR ( Amer) Est GFR (Non-Af Amer) Random Glucose Calcium Total Bilirubin AST ALT Alkaline Phosphatase Total Protein Albumin Globulin Albumin/Globulin Ratio Fluid Source Peritoneal Fluid Appearance Bloody Fluid WBC 967.0 H Fluid RBC 245388.0 H Fluid Tot Cell Count 100 H Fluid Neutrophils 14.2 H Fluid Lymphocytes 85.8 H Fld Monocyte/Macrophag TEST NOT PERFORMED Fluid Comment Red/cloudy Attending/Attestation - Attestation I have personally seen and examined this patient.: Yes I have fully participated in the care of the patient.: Yes I have reviewed all pertinent clinical information: Yes Notes (Text): 10/19/17 18:07 Medical record note made by the resident after discussion with my direction and input after the patient was personally seen and examined by me. I have reviewed the chart and agree that the record accurately reflects by personal performance of the history, physical exam, data review, and medical decision-making, in the course for the patient. I have also personally directed the plan of care 62 year old male with past medical history of Morbid Obesity,HTN, diastolic CHF , atrial fibrillation on ORAL anticoagulation with warfarin, , chronic lymphadema, GERD, Pulmonary HTN and non compliance with medication is admitted with dyspnea on exertion and worsening abdominal swelling . Patient was non compliance with his diuretic.We will start patient on IV lasix, and aldactone.We will hold warfarin.We will get IR consult for Paracentesis. Management plan was discussed in detail with patient. Education was provided.
[2017-10-18] MEDS ORDERED: DiphenhydrAMINE 12.5 mg/5 ml LIQ UD (5 ml) PO PRN (22:00)
[2017-10-18 22:18] VITALS: BMI 57.1
[2017-10-18] MEDS ORDERED: Pneumococcal 23-Valent Vaccine IM ONE (22:18)
[2017-10-19 07:40] LABS: BASO # 0.09 K/mm3 (0.0-2.0); BASO % 1.1 % (0.0-3.0); EOS # 0.4 (0.0-0.7); EOS % 4.5 % (1.5-5.0); GRAN # 5.56 (1.4-6.5); HEMOGLOBIN 10.1 g/dL (14.0-18.0); LYMPH # 1.4 (1.2-3.4); LYMPH % 17.1 % (22.0-35.0); MEAN CELL VOLUME 88.2 fl (80.0-105.0); MEAN CORPUSCULAR HEMOGLOBIN 28.5 pg (25.0-35.0); MEAN CORPUSCULAR HGB CONC 32.3 g/dl (31.0-37.0); MEAN PLATELET VOLUME 8.5 fl (7.0-11.0); MONO # 0.8 (0.1-0.6); MONO % 9.3 % (1.0-6.0); RBC 3.55 10^6/uL (3.5-6.1); RED CELL DISTRIBUTION WIDTH 15.3 % (11.5-14.5); WHITE BLOOD COUNT 8.2 10^3/ul (4.5-11.0)
[2017-10-19 07:53] LABS: INR 2.13 (0.93-1.08); PROTHROMBIN TIME 24.9 SECONDS (9.4-12.5)
[2017-10-19 07:54] LABS: ALB/GLOB RATIO 1.2 (1.1-1.8); ALBUMIN 3.5 g/dL (3.0-4.8); ALT/SGPT 29 U/L (7-56); AST/SGOT 25 U/L (17-59); BLOOD UREA NITROGEN 13 mg/dL (7-21); CALCIUM 8.7 mg/dL (8.4-10.5); GFR AFRICAN-AMERICAN > 60; GFR NON-AFRICAN AMERICAN > 60
--- NOTE | 2017-10-19 08:57 | CP.PCM.CON ---
<Pan Salazar - Last Filed: 10/19/17 08:49> History of Present Illness - History of Present Illness History of Present Illness: PGY-4 GI Fellow Consult Note Pt is a 62 yo WM with Morbid Obesity, Cirrhosis (suspected EtOH, Cardiac) c/b ascites, pAF (on warfarin, s/p ablation), HFpEF (severe pHTN, RVSP 82, EF 61% ), chronic lymphedema presenting with . 12 point ROS negative other than stated above MHx: As stated above, plus h/o DVT s/p IVC FIlter SurgHx: Gastric Bypass, IVC Filter placement Meds: Warfarin, Metoprolol Tartrate, Furosemide 40 mg, Digoxin FamHx: CVA, HTN SocHx: Daily EtOH use, denied tobacco or illicits All: NKDA Past Patient History - Infectious Disease Hx of Infectious Diseases: None - Tetanus Immunizations Tetanus Immunization: Unknown - Past Social History Smoking Status: Former Smoker - CARDIAC Hx Cardiac Disorders: Yes (DVT GREENFILED FILTER.) Hx Cardia Arrhythmia: Yes (CARDIAC ABLATION) Hx Circulatory Problems: Yes Hx Congestive Heart Failure: Yes Hx Hypercholesterolemia: Yes Hx Hypertension: Yes Hx Peripheral Edema: Yes - PULMONARY Hx Respiratory Disorders: Yes (SMOKED CIGARETTES IN HIS TEENS.) - NEUROLOGICAL Hx Neurological Disorder: No - HEENT Hx HEENT Problems: No - RENAL Hx Chronic Kidney Disease: No - ENDOCRINE/METABOLIC Hx Endocrine Disorders: No - HEMATOLOGICAL/ONCOLOGICAL Hx Blood Disorders: No - INTEGUMENTARY Hx Dermatological Problems: Yes Other/Comment: LARGE PANNUS,BILATERAL GROSS LYMPEDEMA. - MUSCULOSKELETAL/RHEUMATOLOGICAL Hx Musculoskeletal Disorders: Yes Hx Falls: No Hx Herniated Disk: Yes Hx Unsteady Gait: Yes (CANE) - GASTROINTESTINAL Hx Gastrointestinal Disorders: Yes - GENITOURINARY/GYNECOLOGICAL Hx Genitourinary Disorders: No - PSYCHIATRIC Hx Psychophysiologic Disorder: No Hx Substance Use: No - SURGICAL HISTORY Hx Surgeries: Yes (GASTRIC BYPASS,DVT-[place] FILTER) Hx Gastric Bypass Surgery: Yes (1999) Other/Comment: Cardiac ablation for atrial fibrillation - ANESTHESIA Hx Anesthesia Reactions: No Hx Malignant Hyperthermia: No Meds Allergies/Adverse Reactions: Allergies Allergy/AdvReac Type Severity Reaction Status Date / Time No Known Allergies Allergy Verified 10/18/17 19:47 - Medications Medications: Current Medications Digoxin (Lanoxin) 0.25 mg PO DAILY ERNESTINA Diphenhydramine HCl (Benadryl) 25 mg PO HS PRN PRN Reason: Insomnia Last Admin: 10/18/17 22:23 Dose: 25 mg Famotidine (Pepcid) 20 mg PO HS ERNESTINA Last Admin: 10/18/17 21:36 Dose: 20 mg Furosemide (Lasix) 20 mg PO DAILY [facility] Metoprolol Tartrate (Lopressor) 50 mg PO BID ERNESTINA Spironolactone (Aldactone) 100 mg PO DAILY ERNESTINA Tramadol HCl (Ultram) 50 mg PO TID PRN PRN Reason: Pain, severe (8-10) Last Admin: 10/19/17 05:20 Dose: 50 mg Physical Exam - Constitutional Appears: No Acute Distress, Older Than Stated Age, Chronically Ill Additional comments: Morbidly Obese - Head Exam Head Exam: ATRAUMATIC, NORMAL INSPECTION - Eye Exam Eye Exam: EOMI. absent: Conjunctival injection, Scleral icterus - ENT Exam ENT Exam: Mucous Membranes Moist, Normal External Ear Exam - Respiratory Exam Respiratory Exam: Clear to Auscultation Bilateral (though exam limited to body habitus), NORMAL BREATHING PATTERN. absent: Accessory Muscle Use - Cardiovascular Exam Cardiovascular Exam: Irregular Rhythm (with split S2). absent: Bradycardia, Tachycardia, Systolic Murmur - GI/Abdominal Exam GI & Abdominal Exam: Distended, Normal Bowel Sounds, Soft. absent: Guarding, Tenderness Additional comments: Exam limited due to body habitus, dull to percussion throughout other than LUQ which was tympanic, +umbiilcal veins, + flank fullness - Neurological Exam Neurological exam: Alert, CN II-XII Intact, Oriented x3 - Psychiatric Exam Psychiatric exam: Normal Affect, Normal Mood - Skin Skin Exam: Dry (Chronic venous stasis changes bilaterally with extensive lymphedema in bilateral LEs), Warm Results - Vital Signs Recent Vital Signs: Last Vital Signs Temp 98.4 F 10/19/17 05:56 Pulse 64 10/19/17 05:56 Resp 20 10/19/17 05:56 BP 133/69 10/19/17 08:21 Pulse Ox 98 10/19/17 05:56 - Labs Result Diagrams: 10/19/17 07:30 10/19/17 07:30 Labs: Laboratory Results - last 24 hr 10/19/17 10/19/17 10/19/17 07:30 07:30 07:30 WBC 8.2 RBC 3.55 Hgb 10.1 L Hct 31.3 L MCV 88.2 MCH 28.5 MCHC 32.3 RDW 15.3 H Plt Count 230 MPV 8.5 Gran % 68.0 Lymph % (Auto) 17.1 L [place] % (Auto) 9.3 H Eos % (Auto) 4.5 Baso % (Auto) 1.1 Gran # 5.56 Lymph # (Auto) 1.4 [place] # (Auto) 0.8 H Eos # (Auto) 0.4 Baso # (Auto) 0.09 PT 24.9 H INR 2.13 H Sodium 131 L Potassium 4.3 Chloride 93 L Carbon Dioxide 28 Anion Gap 14 BUN 13 Creatinine 0.8 Est GFR ( Amer) > 60 Est GFR (Non-Af Amer) > 60 Random Glucose 83 Calcium 8.7 Total Bilirubin 3.1 H AST 25 ALT 29 Alkaline Phosphatase 83 Total Protein 6.4 Albumin 3.5 Globulin 3.0 Albumin/Globulin Ratio 1.2 Assessment & Plan - Assessment and Plan (Free Text) Assessment: 62 yo WM with h/o Cirrhosis (EtOH +/- Cardiac), HFpEF with Pulmonary HTN, Morbid Obesity presenting with worsening shortness of breath and increased abdominal distention. Plan: # Ascites: Due to decompensated cirrhosis with trigger related to ongoing EtOH Abuse, inadequate diuretic regimen, dietary noncompliance. Viral hep ruled out in 2016. --- Paracentesis with cell count, albumin and protein lvl (help determine if candidate for SBP pp ------If >5 L fluid removed, pt to receive albumin 25% 6-8g/L removed --- RUQ Doppler to check for PVT --- Furosemide 20 mg Daily, Spironolactone 100 mg daily - HCC: Needs triple phase CT or MRI to eval, can be done as OP - Varices: Needs OP EGD - HE: None apparent at this time - Vaccines: Needs Hep A and B vaccination if not done # Hyponatremia, Hypervolemic: Likely due to above and CHF. Given cardiac disease with hyponatremia, recommend Cardiology consult as well to assist with diuresis. Patient seen and examined with Dr. Herrera <Rico Herrera - Last Filed: 10/19/17 11:36> Meds - Medications Medications: Current Medications Digoxin (Lanoxin) 0.25 mg PO DAILY [facility] Last Admin: 10/19/17 09:36 Dose: 0.25 mg Diphenhydramine HCl (Benadryl) 25 mg PO HS PRN PRN Reason: Insomnia Last Admin: 10/18/17 22:23 Dose: 25 mg Famotidine (Pepcid) 20 mg PO HS [facility] Last Admin: 10/18/17 21:36 Dose: 20 mg Furosemide (Lasix) 40 mg IVP BID [facility] Last Admin: 10/19/17 09:25 Dose: Not Given Metoprolol Tartrate (Lopressor) 50 mg PO BID [facility] Last Admin: 10/19/17 09:36 Dose: 50 mg Spironolactone (Aldactone) 100 mg PO DAILY [facility] Last Admin: 10/19/17 09:36 Dose: 100 mg Tramadol HCl (Ultram) 50 mg PO TID PRN PRN Reason: Pain, severe (8-10) Last Admin: 10/19/17 10:17 Dose: 50 mg Results - Vital Signs Recent Vital Signs: Last Vital Signs Temp 98.4 F 10/19/17 05:56 Pulse 60 10/19/17 10:00 Resp 20 10/19/17 05:56 BP 133/69 10/19/17 08:21 Pulse Ox 98 10/19/17 05:56 - Labs Result Diagrams: 10/19/17 07:30 10/19/17 07:30 Labs: Laboratory Results - last 24 hr 10/19/17 10/19/17 10/19/17 07:30 07:30 07:30 WBC 8.2 RBC 3.55 Hgb 10.1 L Hct 31.3 L MCV 88.2 MCH 28.5 MCHC 32.3 RDW 15.3 H Plt Count 230 MPV 8.5 Gran % 68.0 Lymph % (Auto) 17.1 L [place] % (Auto) 9.3 H Eos % (Auto) 4.5 Baso % (Auto) 1.1 Gran # 5.56 Lymph # (Auto) 1.4 [place] # (Auto) 0.8 H Eos # (Auto) 0.4 Baso # (Auto) 0.09 PT 24.9 H INR 2.13 H Sodium 131 L Potassium 4.3 Chloride 93 L Carbon Dioxide 28 Anion Gap 14 BUN 13 Creatinine 0.8 Est GFR ( Amer) > 60 Est GFR (Non-Af Amer) > 60 Random Glucose 83 Calcium 8.7 Total Bilirubin 3.1 H AST 25 ALT 29 Alkaline Phosphatase 83 Total Protein 6.4 Albumin 3.5 Globulin 3.0 Albumin/Globulin Ratio 1.2 Attending/Attestation - Attestation I have personally seen and examined this patient.: Yes I have fully participated in the care of the patient.: Yes I have reviewed all pertinent clinical information: Yes Notes (Text): 10/19/17 11:25 61 year old male with history of Alcoholic cirrhosis, CHF, Pulmonary HTN, Afib, h/o DVT on coumadin, h/o RNY gastric bypass, lymphedema, cellulitis who presents with SOB in setting of worsening ascites. Last paracentesis was in July 2015 with pulm HTN on ECHO and right sided failure. He has coagulopathy and hyponatremia and hence lasix should be discontinued but due to SOB will get cardiology to see him. Needs paracentesis with IR. Will refrain from giving FFP due to fluid overload. Low salt diet and triple phase scan to rule out HCC and abdominal sonogram to rule out PVT.
[2017-10-19] MEDS: Digoxin 250 mcg (0.25 mg) Tab PO SCH (09:36)
--- NOTE | 2017-10-19 09:58 | CON ---
DATE: 10/19/2017 CONSULTATION INDICATIONS: Shortness of breath, ascites, chronic edema. HISTORY OF PRESENT ILLNESS: This is a 62-year-old man, who is well known to our practice, admitted with increasing shortness of breath, increasing abdominal girth, increasing edema, weight gain. He came to the emergency room yesterday and was admitted. He has a long history of alcoholic liver disease, abdominal ascites, chronic lymphedema. He has been somewhat sporadic with his medications. He continues drink alcohol. At this time, he is resting in bed. He is not short of breath at rest. There is no chest pain, syncope, palpitation, fever, chills, hemoptysis, abdominal pain, nausea, vomiting, diarrhea, constipation, melena. PAST MEDICAL HISTORY: His past medical history is notable for morbid obesity, hypertension, chronic atrial fibrillation, on warfarin. He has a history of a remote AFib ablation, he has chronic lymphedema, alcoholic liver disease, chronic ascites with several admissions with paracentesis done removing large volumes of ascitic fluid. He has a history of GERD, pulmonary hypertension, remote gastric bypass operation, remote IVC filter. MEDICATIONS AT THE TIME OF ADMISSION: Include warfarin, digoxin, Lasix, metoprolol, tramadol and folic acid. There were no medication allergies reported. SOCIAL HISTORY: He lives at home. He continues to drink wine. He denies smoking currently. He is not very ambulatory. FAMILY HISTORY: Noncontributory. REVIEW OF SYSTEMS: Ten-point review of systems is otherwise unremarkable except as noted above. PHYSICAL EXAMINATION: GENERAL: He is a well-developed, obese male with severe chronic lymphedema, seen on telemetry. VITAL SIGNS: Notable for atrial fibrillation at 64 beats per minute. He is afebrile, blood pressure 126/69, respirations 17-20, O2 sat 98-99% on room air. HEENT: Reveals no neck vein distention, thyromegaly, carotid bruit. Mucous membranes moist. Conjunctivae pink. NECK: Supple. LUNGS: Lung fernandez clear. HEART: Examination of the heart revealed an irregular rhythm. Normal first and second heart sounds. Soft systolic murmur along the left sternal border. Distant heart sounds. ABDOMEN: Obese with ascites, nontender. Bowel sounds present. EXTREMITY: Revealed severe chronic lymphedema, chronic skin changes. No obvious cellulitis. NEUROLOGICAL: Awake, alert, oriented. PSYCHIATRIC: Normal as to mood and affect. SKIN: Warm and dry. Severe changes of lower extremities noted. LABORATORY DATA AND IMAGING: EKG demonstrates atrial fibrillation, 56 beats per minute, poor R-wave progression. Nonspecific ST wave changes. No change from the prior EKG. A portable chest x-ray reveals no active disease. White count normal. Hemoglobin 10.1, hematocrit 31.3, platelet count normal. PT 24.9, INR 2.13, PTT 33.8. Electrolytes notable for a sodium of 131, chloride 93, potassium 4.3, carbon dioxide 28, BUN 13, creatinine 0.8. Bilirubin 2.6, repeat 3.1. Other LFTs unremarkable. BNP 16,000. Dig level 1.3. IMPRESSION: Woodrow Ritter is a 62-year-old man, readmitted with chronic lymphedema, ascites, shortness of breath in the setting of alcoholic liver disease, pulmonary hypertension, continued drinking alcohol and medication noncompliance. He is admitted to telemetry. He will have a GI evaluation. A paracentesis will be arranged. He will be on IV Lasix. I will continue his digoxin, metoprolol. He is getting tramadol, Pepcid, morphine, Benadryl, spironolactone. Warfarin is on hold pending paracentesis. Monitor INRs. Bridge with Lovenox or heparin when the INR is subtherapeutic. Monitor inputs and outputs, stool for occult blood, daily weights, daily labs with INRs. We will review his old records. We will follow along with you and make additional recommendations based on his clinical course. He has been advised to discontinue all alcohol consumption and to take all medications as prescribed upon discharge. Naeem Tripp MD STEPHAN
[2017-10-19] MEDS ORDERED: METOPROLOL TARTRATE 100 MG PO SCH (10:00)
--- NOTE | 2017-10-19 13:19 | CP.PCM.PN ---
<Ralph Woodruff - Last Filed: 10/19/17 15:04> Subjective - Date & Time of Evaluation Date of Evaluation: 10/19/17 Time of Evaluation: 08:30 - Subjective Subjective: Ralph Woodruff DO PGY-1, Film Projector Operator Medicine Progress Note Pt seen and examined at bedside. States that he was only able to sleep for about 30 minutes overnight, c/o shortness of breath and dyspnea with exertion. Improves with positional changes. C/o worsening ascites. No acute events reported overnight. Objective - Vital Signs/Intake and Output Vital Signs (last 24 hours): Temp Pulse Resp BP Pulse Ox 98 F 53 L 18 143/84 98 10/19/17 12:00 10/19/17 12:00 10/19/17 12:00 10/19/17 12:00 10/19/17 05:56 Intake and Output: 10/19/17 10/19/17 06:59 18:59 Intake Total 360 Balance 360 - Medications Medications: Current Medications Digoxin (Lanoxin) 0.25 mg PO DAILY [facility] Last Admin: 10/19/17 09:36 Dose: 0.25 mg Diphenhydramine HCl (Benadryl) 25 mg PO HS PRN PRN Reason: Insomnia Last Admin: 10/18/17 22:23 Dose: 25 mg Famotidine (Pepcid) 20 mg PO HS [facility] Last Admin: 10/18/17 21:36 Dose: 20 mg Furosemide (Lasix) 40 mg IVP BID [facility] Last Admin: 10/19/17 09:25 Dose: Not Given Metoprolol Tartrate (Lopressor) 50 mg PO BID [facility] Last Admin: 10/19/17 09:36 Dose: 50 mg Spironolactone (Aldactone) 100 mg PO DAILY [facility] Last Admin: 10/19/17 09:36 Dose: 100 mg Tramadol HCl (Ultram) 50 mg PO TID PRN PRN Reason: Pain, severe (8-10) Last Admin: 10/19/17 10:17 Dose: 50 mg - Labs Labs: 10/19/17 07:30 10/19/17 07:30 PT 24.9 SECONDS (9.4-12.5) H 10/19/17 07:30 INR 2.13 (0.93-1.08) H 10/19/17 07:30 APTT 33.8 Seconds (25.1-36.5) 10/18/17 15:40 - Constitutional Appears: No Acute Distress, Older Than Stated Age, Chronically Ill - Head Exam Head Exam: ATRAUMATIC, NORMAL INSPECTION, NORMOCEPHALIC - Eye Exam Eye Exam: EOMI, Normal appearance, PERRL - ENT Exam ENT Exam: Mucous Membranes Moist, Normal Oropharynx - Neck Exam Neck Exam: Full ROM, Normal Inspection - Respiratory Exam Respiratory Exam: Clear to Ausculation Bilateral, NORMAL BREATHING PATTERN - Cardiovascular Exam Cardiovascular Exam: REGULAR RHYTHM, +S1, +S2 - GI/Abdominal Exam GI & Abdominal Exam: Distended, Normal Bowel Sounds Additional comments: Fluid wave palpated in abdomen, no tenderness to palpation in all 4 quadrants, hepatomegaly, neg Norris's sign, no rebound tenderness; 5 cm ventral hernia, incisional found on exam, not incarcerated or tender to palpation - Extremities Exam Extremities Exam: Full ROM Additional comments: Signs of venous stasis appreciated, 2+ pitting edema in lower exts b/l, pedal edema b/l - Neurological Exam Neurological Exam: Alert, Awake, CN II-XII Intact, Oriented x3 - Psychiatric Exam Psychiatric exam: Normal Affect, Normal Mood - Skin Skin Exam: Dry, Intact, Warm Assessment and Plan - Assessment and Plan (Free Text) Assessment: 62 year old male with past medical history of ascites, CHF, atrial fibrillation , morbid obesity, lymphedema, GERD, Pulmonary HTN who presented with shortness of breath and worsening ascites. Plan: CHF with ascites BNP on admission 1600 Lasix 20 mg PO daily Aldactone 100 mg PO daily Digoxin 0.25 mg PO daily; digoxin level wnl Strict I's/O's Daily weights Heart healthy diet Na 2 gram, 1200 fluid restriction EKG in ED demonstrated atrial fibrillation, slow ventricular response; HR 56; possible anterior infarct age undetermined CXR in ED negative for active pulmonary disease Echo July 2017: moderate to severe tricuspid regurgitation, severe pulmonary HTN Cardio consulted, recs appreciated GI consulted (Dr. Herrera), recs appreciated U/s abdomen done, f/u results Plan for pt to have bedside paracentesis today w/ cell count, albumin, and protein level Per GI: if > 5 L removed, pt to receive albumin 25% 6-8 g/L PT eval pending Hx Atrial fibrillation Continue Metoprolol Succinate 100 mg PO daily Warfarin to be held until afer paracentesis; INR today 2.13 Digoxin 0.25 mg PO daily Hx chronic pain C/w home med tramadol 50 mg PO tid prn Ventral incisional hernia Pt states that he had gastric bypass surgery in 1999 Area of hernia not tender to palpation, no incarceration of bowel noted on physical exam Pt instructed to f/u with gen surgery outpatient for possible surgical repair DVT/GI prophylaxis: SCDs/Pepcid Pt seen, examined with, and plan discussed with Dr. Land, attending. Ralph Woodruff DO PGY-1, Film Projector Operator Pager #[phone] <Rodriguez Land - Last Filed: 10/19/17 18:19> Objective - Vital Signs/Intake and Output Vital Signs (last 24 hours): Temp Pulse Resp BP Pulse Ox 98.3 F 90 20 148/82 98 10/19/17 17:55 10/19/17 17:55 10/19/17 17:55 10/19/17 17:55 10/19/17 05:56 Intake and Output: 10/19/17 10/19/17 06:59 18:59 Intake Total 360 Balance 360 - Medications Medications: Current Medications Digoxin (Lanoxin) 0.25 mg PO DAILY [facility] Last Admin: 10/19/17 09:36 Dose: 0.25 mg Diphenhydramine HCl (Benadryl) 25 mg PO HS PRN PRN Reason: Insomnia Last Admin: 10/18/17 22:23 Dose: 25 mg Famotidine (Pepcid) 20 mg PO HS [facility] Last Admin: 10/18/17 21:36 Dose: 20 mg Furosemide (Lasix) 40 mg IVP BID [facility] Last Admin: 10/19/17 17:34 Dose: 40 mg Metoprolol Tartrate (Lopressor) 50 mg PO BID [facility] Last Admin: 10/19/17 17:34 Dose: 50 mg Spironolactone (Aldactone) 100 mg PO DAILY [facility] Last Admin: 10/19/17 09:36 Dose: 100 mg Tramadol HCl (Ultram) 50 mg PO TID PRN PRN Reason: Pain, severe (8-10) Last Admin: 10/19/17 10:17 Dose: 50 mg - Labs Labs: 10/19/17 07:30 10/19/17 07:30 PT 24.9 SECONDS (9.4-12.5) H 10/19/17 07:30 INR 2.13 (0.93-1.08) H 10/19/17 07:30 APTT 33.8 Seconds (25.1-36.5) 10/18/17 15:40 Attending/Attestation - Attestation I have personally seen and examined this patient.: Yes I have fully participated in the care of the patient.: Yes I have reviewed all pertinent clinical information, including history, physical exam and plan: Yes Notes (Text): 10/19/17 18:12 Medical record note made by the resident after discussion with my direction and input after the patient was personally seen and examined by me. I have reviewed the chart and agree that the record accurately reflects by personal performance of the history, physical exam, data review, and medical decision-making, in the course for the patient. I have also personally directed the plan of care 62 year old male with past medical history of Morbid Obesity,HTN, diastolic CHF , atrial fibrillation on anticoagulation with warfarin, , lymphadema, GERD, and Pulmonary HTN was admitted with dyspnea on exertion and worsening abdominal swelling.Patient dyspnea was due to fluid overload,and worsening ascites. He was treated with IV Lasix and aldactone.Patient underwent Paracentesis today, the fluid is blood tinged.We will get cell count, gram stain, cultures, cytology , protein,L.DH and glucose Management plan was discussed in detail with patient. Education was provided.
--- NOTE | 2017-10-19 15:26 | PCM.PROC ---
Procedures Attestation:: I certify that I have explained the specified Operation(s) or Procedure(s), risks, benefits and reasonable alternatives to the Patient and/or other person responsible. The opportunity was given to ask questions and all questions answered - Paracentesis Consent Obtained: verbal consent, written consent Time Out Performed: Yes Indication: Ascites Procedure: therapeutic paracentesis Location: RLQ Local Anesthetic Used: lidocaine 1% Additional Comments - Additional Comments Additional Comments: Hakeem Jarrett D.O. PGY-3, Internal Medicine Resident Fluid removed was serosangenous. 10ml drawn and was shown to patient, discussed with him and he states that during his previous paracenteses in the past the fluid has been the same color. Review of chart confirms this. 1 liter of serosangenous fluid was removed. Labs sent. No complications. Patient experienced mild relief of symptoms. Supervised/assisted Dr. Milton Brown D.O. PGY-2, and supervised by Dr. Earl Panchal M.D.
[2017-10-19 17:35] LABS: BODY FLUID TYPE PERITONEAL
[2017-10-19 17:53] LABS: BF GROSS APPEARANCE BLOODY (CLEAR); BODY FLUID TOTAL COUNT 100 (0-0)
--- NOTE | 2017-10-19 19:06 | CARD ---
APPROVED REPORT Date of service: 10/18/2017 EKG Measurement Heart [id number] <Conclusion> Atrial fibrillation with slow ventricular response Possible Anterior infarct, age undetermined Abnormal ECG
[2017-10-20 06:22] VITALS: TEMP 98
--- NOTE | 2017-10-20 06:28 | CP.PCM.PN ---
<Pan Salazar - Last Filed: 10/20/17 11:22> Subjective - Date & Time of Evaluation Date of Evaluation: 10/20/17 Time of Evaluation: 07:00 - Subjective Subjective: PGY-4 GI Fellow Prog Note Pt sitting up in bed when seen this AM. State abd distension and breathing improved after para and diuresis yesterday. Denied f/c, melena, hematochezia. 5 point ROS negative other than stated above Objective - Vital Signs/Intake and Output Vital Signs (last 24 hours): Temp Pulse Resp BP Pulse Ox 98 F 68 20 158/88 H 95 10/20/17 06:00 10/20/17 06:00 10/20/17 06:00 10/20/17 06:00 10/20/17 06:00 Intake and Output: 10/19/17 10/20/17 18:59 06:59 Intake Total 360 Output Total 2250 Balance -1890 - Medications Medications: Current Medications Digoxin (Lanoxin) 0.25 mg PO DAILY [facility] Last Admin: 10/19/17 09:36 Dose: 0.25 mg Diphenhydramine HCl (Benadryl) 25 mg PO HS PRN PRN Reason: Insomnia Last Admin: 10/18/17 22:23 Dose: 25 mg Famotidine (Pepcid) 20 mg PO HS [facility] Last Admin: 10/19/17 22:22 Dose: 20 mg Furosemide (Lasix) 40 mg IVP BID [facility] Last Admin: 10/19/17 17:34 Dose: 40 mg Metoprolol Tartrate (Lopressor) 50 mg PO BID [facility] Last Admin: 10/19/17 17:34 Dose: 50 mg Spironolactone (Aldactone) 100 mg PO DAILY [facility] Last Admin: 10/19/17 09:36 Dose: 100 mg Tramadol HCl (Ultram) 50 mg PO TID PRN PRN Reason: Pain, severe (8-10) Last Admin: 10/19/17 10:17 Dose: 50 mg - Labs Labs: 10/19/17 07:30 10/19/17 07:30 PT 24.9 SECONDS (9.4-12.5) H 10/19/17 07:30 INR 2.13 (0.93-1.08) H 10/19/17 07:30 APTT 33.8 Seconds (25.1-36.5) 10/18/17 15:40 - Constitutional Appears: Older Than Stated Age, Chronically Ill - Eye Exam Eye Exam: EOMI. absent: Conjunctival injection, Scleral icterus - Cardiovascular Exam Cardiovascular Exam: REGULAR RHYTHM (split S2). absent: Bradycardia, Tachycardia - GI/Abdominal Exam GI & Abdominal Exam: Distended, Firm, Soft, Normal Bowel Sounds (massively obese limiting exam, flank fullness). absent: Bruit, Guarding, Rigid, Tenderness - Neurological Exam Neurological Exam: Awake, Oriented x3 - Skin Additional comments: Bilateral LE chronic venous+lymphedema bilaterally Assessment and Plan - Assessment and Plan (Free Text) Assessment: 62 yo WM with h/o Cirrhosis (EtOH +/- Cardiac), HFpEF with Pulmonary HTN, Morbid Obesity presenting with worsening shortness of breath and increased abdominal distention. Plan: # Ascites: Due to decompensated cirrhosis with trigger related to ongoing EtOH Abuse, inadequate diuretic regimen, dietary noncompliance. Viral hep ruled out in 2016. MELD-Na 23 though INR elevated due to warfarin use. --- Paracentesis with 1 L serosang fluid removed. 967 WBC, 14% neut. 318k RBC. Unclear why bloody multiple times? Plan for triple phase CT Scan as OP to eval for HCC and assess abd for possible cause of bloody taps. Check cytology with next tap, previously unremarkable. --- RUQ Doppler to check for PVT pending --- Furosemide 20 mg Daily, Spironolactone 100 mg daily - HCC: Needs triple phase CT or MRI to eval, can be done as OP. Check AFP. - Varices: Needs OP EGD - HE: None apparent at this time - Vaccines: Needs Hep A and B vaccination if not done # Hyponatremia, Hypervolemic: Likely due to above and CHF. Given cardiac disease with hyponatremia, recommend Cardiology consult as well to assist with diuresis. Patient seen and examined with Dr. Castanon Will sign off, patient can f/u with Dr. Herrera in outpatient clinic <Arash Castanon - Last Filed: 10/20/17 12:40> Objective - Vital Signs/Intake and Output Vital Signs (last 24 hours): Temp Pulse Resp BP Pulse Ox 98 F 59 L 18 140/88 95 10/20/17 12:00 10/20/17 12:00 10/20/17 12:00 10/20/17 12:00 10/20/17 06:00 Intake and Output: 10/20/17 10/20/17 06:59 18:59 Intake Total 700 Output Total 2900 Balance -2200 - Medications Medications: Current Medications Digoxin (Lanoxin) 0.25 mg PO DAILY [facility] Last Admin: 10/20/17 09:33 Dose: 0.25 mg Diphenhydramine HCl (Benadryl) 25 mg PO HS PRN PRN Reason: Insomnia Last Admin: 10/18/17 22:23 Dose: 25 mg Famotidine (Pepcid) 20 mg PO HS [facility] Last Admin: 10/19/17 22:22 Dose: 20 mg Furosemide (Lasix) 40 mg IVP BID [facility] Last Admin: 10/20/17 09:36 Dose: 40 mg Furosemide (Lasix) 40 mg IVP ONCE ONE Stop: 10/20/17 14:01 Metoprolol Tartrate (Lopressor) 50 mg PO BID [facility] Last Admin: 10/20/17 09:33 Dose: 50 mg Spironolactone (Aldactone) 100 mg PO DAILY [facility] Last Admin: 10/20/17 09:32 Dose: 100 mg Tramadol HCl (Ultram) 50 mg PO TID PRN PRN Reason: Pain, severe (8-10) Last Admin: 10/19/17 10:17 Dose: 50 mg - Labs Labs: 10/20/17 07:15 10/20/17 07:15 PT 23.8 SECONDS (9.4-12.5) H 10/20/17 07:15 INR 2.04 (0.93-1.08) H 10/20/17 07:15 APTT 33.8 Seconds (25.1-36.5) 10/18/17 15:40 Attending/Attestation - Attestation I have personally seen and examined this patient.: Yes I have fully participated in the care of the patient.: Yes I have reviewed all pertinent clinical information, including history, physical exam and plan: Yes Notes (Text): 10/20/17 12:26 I have seen and examined patient with GI fellow. Patient ambulating in hallway , appears quite comfortable. He denies abdominal pain, nausea, vomiting, fever/ chills, tolerating PO diet without difficulty. s/p paracentesis yesterday with 1 L fluid removed. Review of vitals from today shows elevated BP. ETOH/cardiac decompensated cirrhosis Morbid obesity (BMI 57) Pulmonary HTN Progressive abdominal distention, pain - ascites s/p paracentesis - Low sodium diet as tolerated - Continue with diuretic therapy, monitor electrolytes - Follow up abdominal US results - Obtain AFP - Patient would benefit from dedicated triple phase liver imaging for HCC evaluation - Currently not a candidate for transplant evaluation given ongoing ETOH abuse and medical comorbidities - From GI perspective ok to discharge home with subsequent outpatient follow up. Will sign off case, please reconsult as necessary, thank you.
[2017-10-20 07:29] LABS: BASO # 0.11 K/mm3 (0.0-2.0); BASO % 1.4 % (0.0-3.0); EOS # 0.3 (0.0-0.7); EOS % 4.2 % (1.5-5.0); GRAN # 5.21 (1.4-6.5); GRAN % 65.9 % (50.0-68.0); HEMOGLOBIN 10.7 g/dL (14.0-18.0); LYMPH # 1.3 (1.2-3.4); LYMPH % 16.4 % (22.0-35.0); MEAN CELL VOLUME 89.1 fl (80.0-105.0); MEAN CORPUSCULAR HEMOGLOBIN 28.5 pg (25.0-35.0); MEAN PLATELET VOLUME 8.5 fl (7.0-11.0); MONO % 12.1 % (1.0-6.0); RBC 3.75 10^6/uL (3.5-6.1); RED CELL DISTRIBUTION WIDTH 15.4 % (11.5-14.5); WHITE BLOOD COUNT 7.9 10^3/ul (4.5-11.0)
[2017-10-20 07:37] LABS: INR 2.04 (0.93-1.08); PROTHROMBIN TIME 23.8 SECONDS (9.4-12.5)
[2017-10-20 07:40] LABS: ALB/GLOB RATIO 1.4 (1.1-1.8); ALT/SGPT 28 U/L (7-56); AST/SGOT 24 U/L (17-59); BLOOD UREA NITROGEN 13 mg/dL (7-21); CALCIUM 9.2 mg/dL (8.4-10.5); GFR AFRICAN-AMERICAN > 60; GFR NON-AFRICAN AMERICAN > 60
--- NOTE | 2017-10-20 08:31 | CP.PCM.PN ---
Subjective - Date & Time of Evaluation Date of Evaluation: 10/20/17 Time of Evaluation: 07:00 - Subjective Subjective: Stable on 2R. He feels better s/p paracentesis 1 lt and diureses 5 lt. Less SOB. No CP. V/S noted. AF. Several 2 - 2.5 sec pauses noted. PE: Lungs: decreased BS at bases Cor: irreg S1S2 Abd: obese, + ascites Ext: Severe chronic edema and skin changes Neuro.; alert I/O = 1060/5150 Labs noted; INR = 2.04, BMP OK, Dig = 1.3 Stool for OB Neg Objective - Vital Signs/Intake and Output Vital Signs (last 24 hours): Temp Pulse Resp BP Pulse Ox 98 F 68 20 158/88 H 95 10/20/17 06:00 10/20/17 06:00 10/20/17 06:00 10/20/17 06:00 10/20/17 06:00 Intake and Output: 10/20/17 10/20/17 06:59 18:59 Intake Total 700 Output Total 2900 Balance -2200 - Medications Medications: Current Medications Digoxin (Lanoxin) 0.25 mg PO DAILY [facility] Last Admin: 10/19/17 09:36 Dose: 0.25 mg Diphenhydramine HCl (Benadryl) 25 mg PO HS PRN PRN Reason: Insomnia Last Admin: 10/18/17 22:23 Dose: 25 mg Famotidine (Pepcid) 20 mg PO HS [facility] Last Admin: 10/19/17 22:22 Dose: 20 mg Furosemide (Lasix) 40 mg IVP BID [facility] Last Admin: 10/19/17 17:34 Dose: 40 mg Metoprolol Tartrate (Lopressor) 50 mg PO BID [facility] Last Admin: 10/19/17 17:34 Dose: 50 mg Spironolactone (Aldactone) 100 mg PO DAILY [facility] Last Admin: 10/19/17 09:36 Dose: 100 mg Tramadol HCl (Ultram) 50 mg PO TID PRN PRN Reason: Pain, severe (8-10) Last Admin: 10/19/17 10:17 Dose: 50 mg - Labs Labs: 10/20/17 07:15 10/20/17 07:15 PT 23.8 SECONDS (9.4-12.5) H 10/20/17 07:15 INR 2.04 (0.93-1.08) H 10/20/17 07:15 APTT 33.8 Seconds (25.1-36.5) 10/18/17 15:40 Assessment and Plan - Assessment and Plan (Free Text) Assessment: SOB/Orthopnea/Insomnia Increased edema and weight Morbid Obesity Alcoholic Liver Disease with acites, hyperbilirubinemia HBP AF s/p remote AF ablation PH GERD Remote Gastric Bypas + ETOH Remote Tobacco IVC Filter Plan: Pt anxious to go home but I advised him to stay to allow additional fluid/ volume removal. Continue IV Lasix and PO spironolactone Additional paracentesis, as per GI Monitor labs, I/O, Renal Fx., INRs, sats, etc. D/C all ETOH. He now says he will abstain. Medication compliance discussed with him also.
[2017-10-20] MEDS: Digoxin 250 mcg (0.25 mg) Tab PO SCH (09:33)
[2017-10-20 09:37] VITALS: PULSE 64
[2017-10-20 12:03] VITALS: RESP 18
[2017-10-20 14:32] VITALS: BP 126/61
--- NOTE | 2017-10-20 16:01 | CP.PCM.DIS ---
Provider - Provider Date of Admission: 10/18/17 17:12 Attending physician: Rodriguez Land MD Primary care physician: Rob Carter MD Time Spent in preparation of Discharge (in minutes): 45 Hospital Course - Lab Results Lab Results: Micro Results 10/19/17 15:31 Other: Please Indicate Gram Stain - Final 10/19/17 15:31 Other: Please Indicate Tissue Culture - Preliminary NO GROWTH AFTER 24 HOURS Most Recent Lab Values WBC 7.9 10^3/ul (4.5-11.0) 10/20/17 07:15 RBC 3.75 10^6/uL (3.5-6.1) 10/20/17 07:15 Hgb 10.7 g/dL (14.0-18.0) L 10/20/17 07:15 Hct 33.4 % (42.0-52.0) L 10/20/17 07:15 MCV 89.1 fl (80.0-105.0) 10/20/17 07:15 MCH 28.5 pg (25.0-35.0) 10/20/17 07:15 MCHC 32.0 g/dl (31.0-37.0) 10/20/17 07:15 RDW 15.4 % (11.5-14.5) H 10/20/17 07:15 Plt Count 244 10^3/uL (120.0-450.0) 10/20/17 07:15 MPV 8.5 fl (7.0-11.0) 10/20/17 07:15 Gran % 65.9 % (50.0-68.0) 10/20/17 07:15 Lymph % (Auto) 16.4 % (22.0-35.0) L 10/20/17 07:15 [place] % (Auto) 12.1 % (1.0-6.0) H 10/20/17 07:15 Eos % (Auto) 4.2 % (1.5-5.0) 10/20/17 07:15 Baso % (Auto) 1.4 % (0.0-3.0) 10/20/17 07:15 Gran # 5.21 (1.4-6.5) 10/20/17 07:15 Lymph # (Auto) 1.3 (1.2-3.4) 10/20/17 07:15 [place] # (Auto) 1.0 (0.1-0.6) H 10/20/17 07:15 Eos # (Auto) 0.3 (0.0-0.7) 10/20/17 07:15 Baso # (Auto) 0.11 K/mm3 (0.0-2.0) 10/20/17 07:15 PT 23.8 SECONDS (9.4-12.5) H 10/20/17 07:15 INR 2.04 (0.93-1.08) H 10/20/17 07:15 APTT 33.8 Seconds (25.1-36.5) 10/18/17 15:40 Sodium 132 mmol/L (132-148) 10/20/17 07:15 Potassium 4.4 mmol/L (3.6-5.0) 10/20/17 07:15 Chloride 91 mmol/L (98-107) L 10/20/17 07:15 Carbon Dioxide 29 mmol/L (21-33) 10/20/17 07:15 Anion Gap 16 (10-20) 10/20/17 07:15 BUN 13 mg/dL (7-21) 10/20/17 07:15 Creatinine 0.8 mg/dl (0.8-1.5) 10/20/17 07:15 Est GFR ( Amer) > 60 10/20/17 07:15 Est GFR (Non-Af Amer) > 60 10/20/17 07:15 Random Glucose 86 mg/dL (70-110) 10/20/17 07:15 Calcium 9.2 mg/dL (8.4-10.5) 10/20/17 07:15 Total Bilirubin 3.7 mg/dL (0.2-1.3) H 10/20/17 07:15 AST 24 U/L (17-59) 10/20/17 07:15 ALT 28 U/L (7-56) 10/20/17 07:15 Alkaline Phosphatase 92 U/L (38-126) 10/20/17 07:15 NT-Pro-B Natriuret Pep 1600 pg/mL (0-450) H 10/18/17 16:08 Total Protein 6.9 g/dL (5.8-8.3) 10/20/17 07:15 Albumin 4.0 g/dL (3.0-4.8) 10/20/17 07:15 Globulin 2.9 gm/dL 10/20/17 07:15 Albumin/Globulin Ratio 1.4 (1.1-1.8) 10/20/17 07:15 Fluid Source Peritoneal 10/19/17 17:34 Fluid Appearance Bloody (CLEAR) 10/19/17 17:34 Fluid WBC 967.0 /uL (0.0-300.0) H 10/19/17 17:34 Fluid RBC 293955.0 /uL (0.0-0.0) H 10/19/17 17:34 Fluid Tot Cell Count 100 (0-0) H 10/19/17 17:34 Fluid Neutrophils 14.2 % (0-0) H 10/19/17 17:34 Fluid Lymphocytes 85.8 % (0-0) H 10/19/17 17:34 Fld Monocyte/Macrophag TEST NOT PERFORMED 10/19/17 17:34 Fluid Comment Red/cloudy 10/19/17 17:34 Stool Occult Blood Negative (NEGATIVE) 10/19/17 17:40 Digoxin 1.3 ng/mL (0.8-2.0) 10/18/17 16:08 Discharge Exam - Head Exam Head Exam: ATRAUMATIC, NORMAL INSPECTION, NORMOCEPHALIC Discharge Plan - Discharge Medications Prescriptions: Furosemide [Lasix] 40 mg PO BID #30 vial Spironolactone [Aldactone] 100 mg PO DAILY #30 tab - Follow Up Plan Condition: GUARDED Disposition: HOME/ ROUTINE Instructions: Fluid in the Belly (Ascites) (DC) Additional Instructions: 1.Please follow up with your PMD, Dr. Carter, within 3-5 days regarding this admission. 2.Please remember to maintain a diet low in sodium, continue with fluid restriction as well as this may leads to worsening of ascites. 3.Continue to measure daily weights, and please refrain from alcohol use 4.You will be sent home with Spironolactone 100 mg per day as well as Furosemide 40 mg per day. Please take as prescribed . 5.If symptoms worsen or return please go to your nearest emergency department. Referrals: Rob Carter MD [Primary Care Provider] -
[2017-10-20 16:20] VITALS: PULSE 56
[2017-10-20 16:21] VITALS: O2SAT 97
--- NOTE | 2017-10-22 00:25 | US ---
PROCEDURE: Portal vein duplex ultrasound. CLINICAL HISTORY: Cirrhosis. Deteriorating liver function. Evaluate for portal vein thrombosis. PHYSICIAN(S): Reji Dill M.D. FINDINGS: The exam is very limited. The extrahepatic portal vein is patent with hepatopetal flow. No sonographic evidence for thrombus or obstruction is seen. The 3 hepatic veins are visualized centrally and patent. The hepatic artery is patent. Limited images of the hepatic parenchyma are unremarkable. The spleen is normal in size. No ascites is appreciated. IMPRESSION: 1. Patent portal vein with hepatopetal flow.
[2017-10-22 03:55] LABS: TOTAL PROTEIN PERITONEAL FLUID 4.3 g/dL
== END 2017-10-20 18:02 | disposition home or self-care (01) | DRG 433 ==
LOC: ED 14:54 → ERH 17:12 → 2RSO 19:59
PROVIDERS: ADMIT Internal Medicine; ATTEND Internal Medicine
PROC: 0W9G3ZZ Drainage of Peritoneal Cavity, Percutaneous Approach (ICD-10-PCS; principal; 2017-10-19)
DX: K70.31 Alcoholic cirrhosis of liver with ascites (principal); D68.9 Coagulation defect, unspecified; E87.1 Hypo-osmolality and hyponatremia; Z68.43 Body mass index [BMI] 50.0-59.9, adult; I50.32 Chronic diastolic (congestive) heart failure; I11.0 Hypertensive heart disease with heart failure; I48.2 Chronic atrial fibrillation; E66.01 Morbid (severe) obesity due to excess calories; I27.20 Pulmonary hypertension, unspecified; I07.1 Rheumatic tricuspid insufficiency; E78.00 Pure hypercholesterolemia, unspecified; G47.00 Insomnia, unspecified; I89.0 Lymphedema, not elsewhere classified; K21.9 Gastro-esophageal reflux disease without esophagitis; K70.9 Alcoholic liver disease, unspecified; Z79.01 Long term (current) use of anticoagulants; Z82.3 Family history of stroke; Z82.49 Family history of ischemic heart disease and other diseases of the circulatory system; Z83.3 Family history of diabetes mellitus; Z86.718 Personal history of other venous thrombosis and embolism; Z87.891 Personal history of nicotine dependence; Z91.14 Patient's other noncompliance with medication regimen; Z98.84 Bariatric surgery status